=== PATIENT | female | born 1975 ===

== ENCOUNTER 2020-08-18 08:01 | Outpatient (REF) | payer OTHER, SELFPAY ==
[2020-08-25 10:37] LABS: HPV mRNA E6/E7 rflx Not Detected (Not Detected)
== END 2020-08-18 08:02 | disposition home or self-care (01) ==
LOC: HO.LAB 08:01
PROVIDERS: PCP Internal Medicine; Referring Provider Internal Medicine; Visit Provider Obstetrics & Gynecology
DX: Z01.419 Encounter for gynecological examination (general) (routine) without abnormal findings (principal)
CPT/HCPCS: 87624; 87625; 88142

== ENCOUNTER 2021-06-06 08:52 | Outpatient (REF) | payer OTHER, SELFPAY ==
[2021-06-06 10:48] LABS: Hematocrit 40.3 % (37-47); Hemoglobin 13.1 g/dl (12.0-16.0); Mean Corpuscular HGB Conc 32.5 g/dl (31.0-35.0); Mean Corpuscular Hemoglobin 29.1 pg (27.0-33.0); Mean Corpuscular Volume 89.6 fL (80-98); Mean Platelet Volume 8.9 fL (9.4-12.3); Platelet Count 345 X10*3/uL (160-400); Red Cell Distribution Width 13.2 % (11.0-16.0); White Blood Count 6.9 X10*3/uL (4.8-10.8)
[2021-06-06 11:14] LABS: Thyroid Stimulating Hormone 2.36 uIU/mL (0.32-4.0)
[2021-06-06 11:16] LABS: Alanine Aminotransferase 38 U/L (0-31); Albumin Level 4.7 g/dL (3.5-5.0); Alkaline Phosphatase 119 U/L (39-117); Anion Gap 17 (12-20); Aspartate Amino Transferase 22 U/L (5-31); Blood Urea Nitrogen 14 mg/dL (9-16); C Reactive Protein 1.25 mg/dL (< or = 0.50); Carbon Dioxide 28 mmol/L (22-29); Chloride 101 mmol/L (96-108); Cholesterol 298 mg/dL; Estimated Glomerular Filt Rate > 60; Glucose Random 99 mg/dL (60-115); HDL Cholesterol 46 mg/dL; LDL Cholesterol Calculated 227 mg/dl; Potassium 5.7 mmol/L (3.3-5.1); Sodium 140 mmol/L (135-145); Total Protein 7.8 g/dL (6.5-8.0); Triglycerides 128 mg/dL
[2021-06-06 11:29] LABS: Bilirubin Direct < 0.2 mg/dL (0.0-0.5); Bilirubin Total 0.3 mg/dL (0.0-1.0); Calcium 10.6 mg/dL (8.4-10.2)
[2021-06-12 16:01] LABS: Vitamin D 25-OH, D2 <4 ng/mL; Vitamin D 25-OH, D3 30 ng/mL; Vitamin D 25-OH, Total 30 ng/mL (30-100)
== END 2021-06-06 08:53 | disposition home or self-care (01) ==
LOC: HO.LAB 08:52
PROVIDERS: PCP Internal Medicine; Visit Provider Internal Medicine
DX: Z00.00 Encounter for general adult medical examination without abnormal findings (principal); C50.919 Malignant neoplasm of unspecified site of unspecified female breast; F19.11 Other psychoactive substance abuse, in remission; L21.0 Seborrhea capitis; R05 Cough
CPT/HCPCS: 36415; 80048; 80061; 80076; 82306; 84443; 85027; 86140

== ENCOUNTER 2021-12-07 14:14 | Outpatient (REF) | payer OTHER, SELFPAY ==
[2021-12-07 14:56] LABS: White Blood Count 6.5 X10*3/uL (4.8-10.8)
[2021-12-07 14:57] LABS: Hematocrit 40.2 % (37.0-47.0); Hemoglobin 13.2 g/dl (12.0-16.0); Mean Corpuscular HGB Conc 32.8 g/dl (31.0-35.0); Mean Corpuscular Hemoglobin 28.9 pg (27.0-33.0); Mean Corpuscular Volume 88.2 fL (80.0-98.0); Mean Platelet Volume 8.9 fL (9.4-12.3); Platelet Count 244 X10*3/uL (160-400); Red Blood Count 4.56 X10*6/uL (4.20-5.50); Red Cell Distribution Width 13.2 % (11.0-16.0)
[2021-12-07 15:23] LABS: Alanine Aminotransferase 62 U/L (0-31); Albumin Level 4.5 g/dL (3.5-5.0); Alkaline Phosphatase 86 U/L (39-117); Anion Gap 13 (12-20); Aspartate Amino Transferase 34 U/L (5-31); Bilirubin Direct < 0.2 mg/dL (0.0-0.5); Bilirubin Total 0.2 mg/dL (0.0-1.0); Blood Urea Nitrogen 9 mg/dL (9-16); C Reactive Protein 0.31 mg/dL (< or = 0.50); Carbon Dioxide 27 mmol/L (22-29); Chloride 102 mmol/L (96-108); Cholesterol 258 mg/dL; Estimated Glomerular Filt Rate > 60; Glucose Random 97 mg/dL (60-115); HDL Cholesterol 43 mg/dL; LDL Cholesterol Calculated 187 mg/dl; Potassium 4.2 mmol/L (3.3-5.1); Sodium 138 mmol/L (135-145); Total Protein 7.6 g/dL (6.5-8.0); Triglycerides 144 mg/dL
[2021-12-07 15:47] LABS: Thyroid Stimulating Hormone 2.84 uIU/mL (0.32-4.0)
[2021-12-09 12:52] LABS: TS Negative Control Passed; TS Panel A 0; TS Panel B 0; TS Positive Control Passed; TSpotTB Negative (Negative)
== END 2021-12-07 14:15 | disposition home or self-care (01) ==
LOC: HO.LAB 14:14
PROVIDERS: PCP Internal Medicine; Visit Provider Internal Medicine
DX: Z11.1 Encounter for screening for respiratory tuberculosis (principal); E78.01 Familial hypercholesterolemia; R05.9 Cough, unspecified
CPT/HCPCS: 36415; 80048; 80061; 80076; 84443; 85027; 86140; 86481

== ENCOUNTER 2022-02-15 11:02 | Outpatient (REF) | payer OTHER, SELFPAY | END 2022-02-15 11:03 | disposition home or self-care (01) | LOC: HO.LAB 11:02 | PROVIDERS: Visit Provider Obstetrics & Gynecology | DX: Z01.411 Encounter for gynecological examination (general) (routine) with abnormal findings (principal); N88.9 Noninflammatory disorder of cervix uteri, unspecified | CPT/HCPCS: 57500; 88305 ==

== ENCOUNTER → 2022-03-02 15:12 | Outpatient (BNVA) | payer OTHER, SELFPAY | PROVIDERS: PCP Internal Medicine; Visit Provider Obstetrics & Gynecology | DX: N88.9 Noninflammatory disorder of cervix uteri, unspecified (principal) | CPT/HCPCS: 99212 ==

== ENCOUNTER 2022-11-14 12:47 | Outpatient (REF) | payer OTHER, SELFPAY ==
--- NOTE | ~2022-11-14 | US_ITS ---
EXAMINATION: US PELVIS CLINICAL INFORMATION: Irregular menstruation. LMP approximately 11/10/2022. COMPARISON: No similar priors. TECHNIQUE: Ultrasound of the pelvis is performed using both transabdominal and transvaginal transducers along with Doppler. Transvaginal imaging is performed due to inadequate visualization transabdominally. FINDINGS: The uterus is anteverted and anteflexed measuring 6.5 x 3.1 x 4.3 cm. There is a 0.9 x 0.9 x 0.8 cm partially exophytic lesion in the posterior uterine fundus that statistically favors to represent a fibroid. The endometrium measures 0.4 cm in thickness without discrete focal abnormality. The right ovary is atrophic but with normal morphology and preserved flow on color Doppler at the moment of this examination measuring 1.3 x 1.2 x 1.2 cm, 1 mL. The left ovary is asymmetrically enlarged measuring 2.5 x 2.4 x 2.2 cm, 6.7 mL. There is suggestion of a rounded lesion in the left ovary measuring approximately 0.9 x 0.8 x 0.8 cm with internal echoes/debris and no discrete associated vascularity. There is preserved flow to this ovary on color Doppler at the moment of this examination. A few hyperechoic foci are noted in the parenchyma of the left ovary. No free fluid. US/US pelvic and transvaginal IMPRESSION: 1. Asymmetric enlargement of the left ovary with suggestion of an approximately 0.9 cm rounded lesion with internal echoes/debris and no discrete associated vascularity. This could represent a hemorrhagic cyst or corpus luteal cyst, however an ovarian neoplasm cannot be entirely excluded. Recommend a follow-up examination in 6-12 weeks to reassess. Alternatively, further evaluation with an MR pelvis with and without IV contrast could be obtained. 2. A few hyperechoic foci are noted in the parenchyma of the left ovary which could represent calcifications, uncertain significance. Attention on follow-up recommended. 3. A 0.9 cm lesion in the posterior uterine fundus statistically favors to represent a fibroid. 4. The right ovary is atrophic.
== END 2022-11-14 12:48 | disposition home or self-care (01) ==
LOC: HO.HMGCX 12:47
PROVIDERS: PCP Internal Medicine; Visit Provider Internal Medicine
DX: N92.6 Irregular menstruation, unspecified (principal)
CPT/HCPCS: 76830; 76856

== ENCOUNTER → 2022-12-19 11:26 | Outpatient (BNVA) | payer OTHER, SELFPAY | PROVIDERS: PCP Internal Medicine; Visit Provider Obstetrics & Gynecology | DX: Z13.89 Encounter for screening for other disorder (principal) ==

== ENCOUNTER 2023-01-12 13:24 | Outpatient (REF) | payer OTHER, SELFPAY ==
--- NOTE | ~2023-01-12 | MR_ITS ---
EXAMINATION: MR PELVIS WITHOUT AND WITH CONTRAST CLINICAL INFORMATION: Follow-up ovarian cyst. COMPARISON: Previous pelvic ultrasound October 2022. TECHNIQUE: Sagittal, axial and coronal sequences through the pelvis with and without IV contrast. The patient received 8.5 mL Gadavist intravenous contrast. FINDINGS: The uterus is anteverted and measures 7.64 x 4.5 cm in sagittal AP and transverse dimension. Endometrial thickness is normal measuring 5 mm. The junctional zone does not appear thickened. There is a 1 cm low signal lesion seen in the posterior right uterine body probably representing a fibroid. There is a 1 cm low signal lesion in the left fundus of the uterus probably representing a fibroid. No other focal uterine lesion. There are nabothian cysts in the cervix. There is a new 3.4 x 2.9 x 3.5 cm lesion in the right ovary. This is heterogeneous in signal. Predominantly high signal on T1-weighted and T2 sequences. This has septation, dependent low signal component and fluid-fluid level. Differential would include endometrioma and hemorrhagic cyst. There is an 8 mm lesion in the left ovary. There is high signal on T1 and T2-weighted sequences and does not demonstrate appreciable enhancement. This may represent a hemorrhagic cyst or endometrioma as well. No ascites or adenopathy. The bladder is not optimally distended. Visualized bowel is normal. No hernia. Normal vascular structures. Bright 1 cm lesion in the L4 vertebral body probably representing a hemangioma. Bony structures are otherwise unremarkable. MR/MR pelvis wo/w con IMPRESSION: New 3 x 3.5 cm complex right ovarian lesion and probably stable 8 mm left ovarian lesion. These probably represent hemorrhagic cysts or endometriomas. Small uterine fibroids.
[2023-01-12 13:59] LABS: Hematocrit 40.9 % (37.0-47.0); Hemoglobin 13.6 g/dl (12.0-16.0); Mean Corpuscular HGB Conc 33.3 g/dl (31.0-35.0); Mean Corpuscular Hemoglobin 28.8 pg (27.0-33.0); Mean Corpuscular Volume 86.7 fL (80.0-98.0); Mean Platelet Volume 8.8 fL (9.4-12.3); Platelet Count 276 X10*3/uL (160-400); Red Blood Count 4.72 X10*6/uL (4.20-5.50); Red Cell Distribution Width 13.5 % (11.0-16.0); White Blood Count 7.6 X10*3/uL (4.8-10.8)
[2023-01-12 14:36] LABS: Alanine Aminotransferase 41 U/L (0-31); Albumin Level 4.4 g/dL (3.5-5.0); Alkaline Phosphatase 60 U/L (39-117); Anion Gap 12 (12-20); Aspartate Amino Transferase 34 U/L (5-31); Bilirubin Direct 0.1 mg/dL (0.0-0.5); Bilirubin Total 0.5 mg/dL (0.0-1.0); Blood Urea Nitrogen 8 mg/dL (9-16); Calcium 9.5 mg/dL (8.4-10.2); Carbon Dioxide 30 mmol/L (22-29); Chloride 103 mmol/L (96-108); Cholesterol 230 mg/dL; Estimated Glomerular Filt Rate > 60; Glucose Random 87 mg/dL (60-115); HDL Cholesterol 40 mg/dL; LDL Cholesterol Calculated 164 mg/dl; Potassium 4.4 mmol/L (3.3-5.1); Sodium 141 mmol/L (135-145); Total Protein 7.1 g/dL (6.5-8.0); Triglycerides 130 mg/dL
[2023-01-12 14:51] LABS: Thyroid Stimulating Hormone 4.56 uIU/mL (0.32-4.0)
[2023-01-12 14:56] LABS: Appearance Urine Cloudy; Color Urine Dark Yellow; Glucose Urine UA Negative (Negative); Leukocyte Esterase Urine Small (1+) (Negative); Nitrite Urine Negative (Negative); PH 5.5 (5.0-9.0); Specific Gravity - Urine >= 1.030 (1.005-1.025); UMIC TRIGGER UA YES; Urine Blood Negative (Negative); Urine Ketones Trace mg/dL (Negative); Urine Protein 30 (1+) mg/dL (Neg-Trace)
[2023-01-12 15:12] LABS: Bacteria Urine 1+ (None Seen); Hyaline Casts Urine 0-2 /LPF (0-2); RBC Urine 0-2 /HPF (0-2)
[2023-01-15 16:28] LABS: CA-125 12 U/mL (<35)
== END 2023-01-12 13:25 | disposition home or self-care (01) ==
LOC: HO.MRI 13:24
PROVIDERS: Absent Provider Internal Medicine; PCP Internal Medicine; Visit Provider Obstetrics & Gynecology
DX: E78.5 Hyperlipidemia, unspecified (principal); N83.201 Unspecified ovarian cyst, right side; N83.9 Noninflammatory disorder of ovary, fallopian tube and broad ligament, unspecified
CPT/HCPCS: 36415; 72197; 80048; 80061; 80076; 81001; 84443; 85027; 86304; A9585

== ENCOUNTER → 2023-02-01 10:20 | Outpatient (BNVA) | payer OTHER, SELFPAY | PROVIDERS: PCP Internal Medicine; Visit Provider Obstetrics & Gynecology ==

== ENCOUNTER 2023-04-26 11:00 | Outpatient (REF) | payer OTHER, SELFPAY ==
--- NOTE | ~2023-04-26 | US_ITS ---
EXAMINATION: US PELVIS CLINICAL INFORMATION: Ovarian cyst. COMPARISON: Pelvic ultrasound dated 11/14/2022. MRI dated 01/12/2023. TECHNIQUE: Ultrasound of the pelvis is performed using both transabdominal and transvaginal transducers along with Doppler. Transvaginal imaging is performed due to inadequate visualization transabdominally. FINDINGS: Uterus: The uterus is anteverted and measures 8.7 x 3.2 x 4.2 cm. The double wall endometrial thickness is 7 mm. 1.1 cm or less fundal uterine leiomyomata. The uterus is smooth in contour and otherwise demonstrates unremarkable myometrial echogenicity. Adnexa: Both ovaries are visualized. There is normal color flow to the adnexa. There is no evidence of ovarian torsion. No pelvic ascites or fluid collection is seen. Right ovary measures 2.5 x 1.1 x 1.7 cm. The 3 x 3.5 cm complex right ovarian lesion identified on MRI from 01/12/2023 is not clearly demonstrated on the current study. Left ovary measures 3.5 x 2.9 x 2.8 cm. 2.6 x 2.5 x 2.2 cm left ovarian structure which is suboptimally visualized. It may contain a fluid-fluid level. A 0.9 cm rounded lesion with internal echoes/debris was identified within the left ovary on 11/14/2022. US/US pelvic and transvaginal IMPRESSION: 2.6 x 2.5 x 2.2 cm left ovarian structure which is suboptimally visualized. It may contain a fluid-fluid level. A 0.9 cm rounded lesion with internal echoes/debris was identified within the left ovary on 11/14/2022. Follow-up pelvic ultrasound in approximately 6 weeks is recommended for further evaluation. The 3 x 3.5 cm complex right ovarian lesion identified on MRI from 01/12/2023 is not clearly demonstrated on the current study.
== END 2023-04-26 11:01 | disposition home or self-care (01) ==
LOC: HO.US 11:00
PROVIDERS: PCP Internal Medicine; Visit Provider Obstetrics & Gynecology
DX: N83.299 Other ovarian cyst, unspecified side (principal)
CPT/HCPCS: 76830; 76856

== ENCOUNTER 2023-06-21 13:39 | Outpatient (REF) | payer OTHER, SELFPAY ==
[2023-06-26 20:04] LABS: HPV mRNA E6/E7 rflx Not Detected (Not Detected)
== END 2023-06-21 13:40 | disposition home or self-care (01) ==
LOC: HO.LNP 13:39
PROVIDERS: PCP Internal Medicine; Visit Provider Obstetrics & Gynecology
DX: Z01.419 Encounter for gynecological examination (general) (routine) without abnormal findings (principal); Z11.51 Encounter for screening for human papillomavirus (HPV)
CPT/HCPCS: 87624; 88142

== ENCOUNTER 2023-06-21 13:39 | Outpatient (AMB) | payer OTHER, SELFPAY ==
[2023-06-21 13:45] VITALS: BP 130/72; BMI 36.3
--- NOTE | 2023-06-21 13:45 | A.OFFVIS_ITS ---
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 No complaints. Last Pap/HPV was negative in 08/13 Last Mammogram was in 12/14 at [facility] according to patient result was negative, records are not available No previous screen Colonoscopy Last pelvic ultrasound on 04/30/2023, as a follow-up from previous MRI showing right complex ovarian cyst showed the following: IMPRESSION: 2.6 x 2.5 x 2.2 cm left ovarian structur e which is suboptimally visualized. It may contain a fluid-fluid level. A 0.9 cm rounded lesion with internal echoes/debris was identified within the left ovary on 11/14/2022. Follow-up pelvic ultrasound in approximately 6 weeks is recommended for further evaluation. The 3 x 3.5 cm complex right ovarian lesion identified on MRI from 01/12/2023 is not clearly demonstrated o n the current study. PFSH Medical History Seborrhea capitis History of drug abuse Breast cancer Surgical History Hx of breast reconstruction History of lumpectomy of left breast H/O LEEP Family History Mother Substance use disorder Father No problems noted. Sister Breast cancer Social History Housing: House Alcohol intake: never Patient Tobacco Use Status: Former Tobacco user Tobacco use type: Cigarette e-Cigarette/Vaping Use: Never Used Second Hand Smoke Exposure: No service: No Current occupational status: employed Gender identity: Female Cognitive needs: No Hearing needs: No Vision needs: No Female Reproductive History Menstrual Age of Menarche: 14 control method: none Total pregnancies: 1 Full term: 1 Number of Living Children: 1 Date of last pap smear: 08/23/20 (negative) Review of Systems Const All systems reviewed & are unremarkable except as noted in HPI and below Card Reports as per HPI Resp Reports as per HPI GI Reports as per HPI and Reports no additional complaints Reports as per HPI Physical Exam Vital Signs: Last Vital Signs BP 130/72 06/21/23 13:45 BMI result Body Mass Index 36.3 Const General: cooperative, healthy appearing and comfortable Chest Chest palpation & inspection: normal inspection of the chest and normal palpation of entire chest wall Breast/axilla inspection: normal inspection of the breasts and normal inspection of the axillae Breast/axilla palpation: normal palpation of the breasts, normal palpation of th e axillae and no axillary lymphadenopathy Resp Effort & Inspection: normal respiratory effort Auscultation: clear to auscultation bilaterally Percussion: percussion normal Cardio Palpation: normal PMI Rate: regular rate Rhythm: regular rhythm Heart sounds: no murmurs and no rubs Peripheral pulses: Peripheral pulses 2+ throughout GI Inspection: Yes normal to inspection Palpation (GI): Soft to palpation, nontender, no guarding, not rigid and No hepatosplenomegaly present Percussion: Yes normal to percussion Auscultation: normal bowel sounds Rectal Exam - Female: deferred General: Yes bladder normal to palpation External Female Exam: No lesion Speculum Exam - Vagina: normal appearance of the vagina, normal palpation, normal vaginal discharge and not erythematous Speculum Exam - Cervix: normal appearance of the cervix and normal palpation Bimanual exam- vagina & uterus: normal bimanual exam, normal palpation, uterine size normal, bladder normal to palpation, consistency normal and normal palpation Bimanual Exam- Adnexa, other: normal adnexae, no masses and no tenderness Assessment & Plan Assessment & Plan (1) Well woman exam: Comment: History of a LEEP in 2003 Code(s): Z01.419 - Encounter for gynecological examination (general) (routine) without abnormal findings Plan: Cotesting done since the patient had a LEEP in 2003 Instructions given the patient to schedule her next screen Mammogram in 12/15 Counseled the patient about the recommended dietary allowance of 1000 mg of Calcium & 600 IU of vitamin D. Will refer to GI for screening colonoscopy The patient was instructed to perform monthly self-breast exams and to schedule an annual exam in a year; All questions answered and the patient verbalized understanding. Instructed the patient to schedule annual exam in a year (2) Complex ovarian cyst: Comment: Right Code(s): N83.299 - Other ovarian cyst, unspecified side Plan: Discussed with the patient ultrasound findings showing the previously identified complex cyst has resolved. The patient was instructed to call if symptoms recur. All questions were answered the patient verbalized understanding. (3) Left pelvic adnexal fluid collection: Code(s): R19.8 - Other specified symptoms and signs involving the digestive system and abdomen Plan: Discussed with the patient the results of the ultrasound showing left adnexal structures was fluid filled, repeat pelvic ultrasound within 2 weeks. Instructions given the patient to schedule a follow-up appointment afterwards. All questions answered, the patient verbalized understanding. Orders: Orders Pap Smear Today Z01.419 - Encounter for gynecological examination (general) (r outine) without abnormal findings US pelvic and transvaginal Today R19.8 - Other specified symptoms and signs involving the digestive system and abdomen Referrals Gastroenterology Referral Z12.11 - Encounter for screening for malignant neoplasm of colon Coding Level of Care Code Est Pt Prev Care 40-64y(64489) Diagnoses Well woman exam Z01.419 Complex ovarian cyst N83.299 Left pelvic adnexal fluid collection R19.8
== END 2023-06-21 14:22 | disposition home or self-care (01) ==
PROVIDERS: PCP Internal Medicine; Visit Provider Obstetrics & Gynecology
DX: Z01.419 Encounter for gynecological examination (general) (routine) without abnormal findings (principal); N83.299 Other ovarian cyst, unspecified side; R19.8 Other specified symptoms and signs involving the digestive system and abdomen
CPT/HCPCS: 99396

== ENCOUNTER 2023-07-12 11:33 | Outpatient (REF) | payer OTHER, SELFPAY ==
--- NOTE | ~2023-07-12 | US_ITS ---
EXAMINATION: US PELVIS COMPLETE CLINICAL INFORMATION: Additional Notes/Special Instructions Left pelvic adnexal fluid collection COMPARISON: Pelvic ultrasound 04/26/2023 TECHNIQUE: Transabdominal and transvaginal imaging was performed. FINDINGS: The uterus is of normal size and echogenicity measuring 6.8 x 3.5 x 4.2 cm. A regular homogeneous endometrium is identified measuring 0.4 cm. Nabothian cysts in the cervix. A 0.8 cm right intramural myoma previously 0.6 cm and a 1.0 cm posterior body subserosal myoma, previously 1.1 cm. Both ovaries are of normal size and echogenicity. The right measures 2.1 x 1.8 x 1.3 cm for a volume of 2.6 mL. The left measures 2.2 x 1.3 x 1.3 cm for a volume of 2.0 mL. Resolution of the previously seen left ovarian hemorrhagic cyst. There is no pelvic free fluid. US/US pelvic and transvaginal IMPRESSION: 1. Resolution of the previously seen left ovarian hemorrhagic cyst. 2. A 0.8 cm right intramural myoma and a 1.0 cm posterior body subserosal myoma.
== END 2023-07-12 11:34 | disposition home or self-care (01) ==
LOC: HO.US 11:33
PROVIDERS: PCP Internal Medicine; Visit Provider Obstetrics & Gynecology
DX: R19.8 Other specified symptoms and signs involving the digestive system and abdomen (principal)
CPT/HCPCS: 76830; 76856

== ENCOUNTER 2023-10-04 08:14 | Outpatient (AMB) | payer OTHER, SELFPAY ==
[2023-10-04 08:23] VITALS: BP 128/78; PULSE 97; O2SAT 98; BMI 35.1
--- NOTE | 2023-10-04 08:23 | MHC.PC.OV ---
Vital Signs 10/04/23 08:23 Height 5 ft 1 in Weight 186 lb BMI 35.1 BP 128/78 Blood Pressure Location Lt brachial Position Sitting Pulse 97 Pulse Source Pulse Oximeter Pulse Oximetry (%) 98 Oxygen Delivery Method Room Air Intake Visit Reasons: 6mth f/u Allergies No Known Allergies [No Known Allergies*] Allergy (Verified 10/04/23 08:23) Tobacco use date assessed: 10/04/23 Dental Screening Dental Screen Date: 10/04/23 Did you have a dental visit in the last 12 months?: Yes Did you have a dental problem in the last 6 months where you did not have access to dental care?: No Was dental information given to patient?: Patient has dentist HPI 6mth f/u HPI Details 47-year-old female presents to the office to discuss her chronic medical conditions. The insurance company declined her request for the weight loss medications. Patient is quite frustrated. Reports she has been exercising and following a healthy diet. Compliant with medications. Patient was diagnosed with breast cancer at age 43. She had 2 lumps in the left breast and had 2 lumpectomies followed by chemo and radiation. She is being followed by the oncologist at [facility]. Able to function and do all activities of daily living. [facility] Medical History Seborrhea capitis History of drug abuse Breast cancer Surgical History Hx of breast reconstruction History of lumpectomy of left breast H/O LEEP Family History Mother Substance use disorder Father No problems noted. Sister Breast cancer Social History Housing: House Alcohol intake: never Patient Tobacco Use Status: Former Tobacco user Tobacco use type: Cigarette e-Cigarette/Vaping Use: Never Used Second Hand Smoke Exposure: No service: No Current occupational status: employed Gender identity: Female Cognitive needs: No Hearing needs: No Vision needs: Yes Female Reproductive History Menstrual Age of Menarche: 14 Questionnaire PHQ-9 Over the last 2 weeks, how often have you been bothered by any of the following problems? 1. Little interest or pleasure in doing things: not at all 2. Feeling down, depressed, or hopeless: several days 3. Trouble falling or staying asleep, or sleeping too much: not at all 4. Feeling tired or having little energy: not at all 5. Poor appetite or overeating: not at all 6. Feeling bad about yourself - or that you are a failure or have let yourself or your family down: not at all 7. Trouble concentrating on things, such as reading the newspaper or watching television: not at all 8. Moving or speaking so slowly that other people could have noticed. Or the opposite - being so fidgety or restless that you have been moving around a lot more than usual: not at all 9. Thoughts that you would be better off or of hurting yourself in some way: not at all Total score: 1 Source: Developed by Drs. Ghanshyam Fallon, Tonja Lind, Gregg Joseph and colleagues, with an educational allison from [employer]. Thrive Questionnaire Date Thrive assessed: 10/04/23 I am a: Patient What is your living situation today?: I have a steady place to live Within the past 12 months, did the food you bought not last and you didn't have the money to get more?: Never true Within the past 12 months, did you worry whether your food would run out before you got money to buy more?: Never true Do you have trouble paying for medicines?: No Do you have trouble getting transportation to medical appointments?: No Do you have trouble paying your heating and electricity bill?: No Do you have trouble taking care of your child, family member or friend?: No Do you have trouble with day-to-day activities such as bathing, preparing meals, shopping, managing finances, etc.?: No Are you currently unemployed and looking for a job?: No Are you interested in more education?: No Please select the resources that you would like help with: None Currently or been in a relationship where the following occur: no concerns reported AUDIT C Alcohol Use Questionnaire (AUDIT-C) 1. How often do you have a drink containing alcohol?: Never Total Score: 0 ALFONZO-7 AMB Questionnaire ALFONZO-7 Date ALFONZO - 7 assessed: 10/04/23 Feeling nervous, anxious, or on edge: 1 = Several days Not being able to stop or control worryin = Not at all Worrying too much about different things: 0 = Not at all Trouble relaxin = Not at all Being so restless that it is hard to sit still: 0 = Not at all Becoming easily annoyed or irritable: 0 = Not at all Feeling afraid as if something awful might happen: 0 = Not at all Total ALFONZO-7 score (0-4 normal; 5-9 mild; 10-14 moderate; 15-21 severe): 1 Source: Developed by Drs. Ghanshyam Fallon, Tonja Lind, Gregg Joseph and colleagues, with an educational allison from [employer]. Physical exam (Primary Care) Vital Signs: Last Vital Signs Pulse 97 10/04/23 08:23 BP 128/78 10/04/23 08:23 Pulse Ox 98 10/04/23 08:23 Oxygen Delivery Method Room Air 10/04/23 08:23 Care Plan Goal for BP management: Blood pressure is stable. Continue current medications. BMI result Body Mass Index 35.1 Tobacco/Smoking Status: Tobacco use Status Tobacco use date assessed 10/04/23 10/04/23 08:27 Patient Tobacco Use Status Former Tobacco user 10/04/23 08:27 Tobacco use type Cigarette 10/04/23 08:27 e-Cigarette/Vaping Use Never Used 10/04/23 08:27 PHQ-9: PHQ-9 Score PHQ-9: Total score 1 10/04/23 08:27 Thrive Assessment: Date of Thrive Assessment Date Thrive assessed 10/04/23 10/04/23 08:27 Currently or been in a relationship where the following occur: no concerns reported Const General: cooperative and healthy appearing Nutritional Appearance: well nourished Orientation/consciousness: patient oriented x3 Limitations: no limitations HENMT Head: Yes normal to inspection Eyes General: appearance normal, both eyes and all related structures Neck Neck: Yes normal visual inspection Chest Chest palpation & inspection: normal palpation of entire chest wall Resp Effort & Inspection: normal respiratory effort Neuro General: patient oriented x3 Assessment and Plan Assessment & Plan (1) Class 2 severe obesity with body mass index (BMI) of 35 to 39.9 with serious comorbidity: Code(s): E66.01 - Morbid (severe) obesity due to excess calories Plan: An appointment with the weight loss clinic or a collection systems administrator has been suggested. Clinical tree care foreman will try to help the patient get the appointment. (2) Familial hypercholesterolemia: Code(s): E78.01 - Familial hypercholesterolemia Plan: Blood work has been ordered. Will call with results. (3) History of drug abuse: Code(s): F19.11 - Other psychoactive substance abuse, in remission Plan: This condition is stable. Patient has continued to abstain. (4) Breast cancer: Code(s): C50.919 - Malignant neoplasm of unspecified site of unspecified female breast Plan: Condition is stable. Copy of her last mammogram has been requested. Coding Level of Care Code Est Pt Level 4 (75212) Diagnoses Class 2 severe obesity with body mass index (BMI) of 35 to 39.9 with serious comorbidity E66.01 Familial hypercholesterolemia E78.01 History of drug abuse F19.11 Breast cancer C50.919
== END 2023-10-04 08:42 | disposition home or self-care (01) ==
PROVIDERS: PCP Internal Medicine; Visit Provider Internal Medicine
DX: C50.919 Malignant neoplasm of unspecified site of unspecified female breast (principal); E66.01 Morbid (severe) obesity due to excess calories; F19.11 Other psychoactive substance abuse, in remission; Z68.35 Body mass index [BMI] 35.0-35.9, adult; E78.01 Familial hypercholesterolemia
CPT/HCPCS: 99214

== ENCOUNTER 2023-10-05 09:42 | Outpatient (AMB) | payer OTHER, SELFPAY ==
--- NOTE | 2023-10-05 09:43 | A.OFFVIS_ITS ---
Intake Vital Signs 10/05/23 09:49 Height 5 ft 1 in Weight 186 lb BMI 35.1 BP 120/64 Blood Pressure Location Lt brachial Position Sitting Pulse 88 Intake Visit Reasons: Colonoscopy Screening Intake Note: Patient new consult for Pre Colonoscopy screening. Patient cc: constipation, denies any other GI issues. Solutions Architect Required: No Accompanied by: Self / Same As Patient Allergies No Known Allergies [No Known Allergies*] Allergy (Verified 10/05/23 09:44) HPI Colonoscopy Screening HPI Details 47-year-old female with past medical his tory of uterine myoma, abnormal menstruation, hyperlipidemia, headaches, breast cancer is here today for initial consultation. Patient was sent to us by her PCP. This will be her 1st colonoscopy screening. Patient denies any family history of colorectal cancer. Patient denies any issues with anesthesia in the past. Denies any history of sleep apnea. Not on any anticoagulation medication. Patient reports that she has been constipated for very long time. Sometimes bowel movements only once a week. Patient is also on Suboxone. That could be also contributing to her constipation. All the patient does report that she has long history of constipation. Patient denies any melena, hematochezia, unintentional weight loss or ribbon like stools. Denies any dyspepsia, dysphagia or odynophagia. [facility] Medical History Seborrhea capitis History of drug abuse Breast cancer Surgical History Hx of breast reconstruction History of lumpectomy of left breast H/O LEEP Family History Mother Substance use disorder Father No problems noted. Sister Breast cancer Social History Housing: House Alcohol intake: never Patient Tobacco Use Status: Former Tobacco user Tobacco use type: Cigarette e-Cigarette/Vaping Use: Never Used Second Hand Smoke Exposure: No service: No Current occupational status: employed Gender identity: Female Cognitive needs: No Hearing needs: No Vision needs: Yes Female Reproductive History Menstrual Age of Menarche: 14 Review of Systems Const Denies weight gain and Denies weight loss ENT Reports no additional complaints, Denies dysphagia and Denies odynophagia Card Reports no additional complaints Resp Reports no additional complaints GI Denies abdominal pain, Denies belching, Denies melena, Denies bloating, Reports constipation, Denies dysphagia, Denies excessive flatus, Denies dyspepsia, Denies heartburn, Denies diarrhea, Denies loose stools, Denies nausea, Denies odynophagia and Denies vomiting Reports no additional complaints Musc Reports no additional complaints Neuro Reports no additional complaints Psych Reports no additional complaints Endo Reports no additional complaints Physical Exam Vital Signs: Last Vital Signs Pulse 88 10/05/23 09:49 BP 120/64 10/05/23 09:49 BMI result Body Mass Index 35.1 Const General: healthy appearing, no acute distress and well developed Nutritional Appearance: well nourished Orientation/consciousness: patient oriented x3 Resp Effort & Inspection: normal respiratory effort, able to speak in complete sentences, no tracheal deviation and symmetric chest movement Auscultation: clear to auscultation bilaterally Cardio Rate: regular rate GI Inspection: Yes normal to inspection and No distended Palpation (GI): Soft to palpation, not firm, nontender and No hepatosplenomegaly present Auscultation: normal bowel sounds General: Yes no CVA tenderness Back/Spine/Pelvis Back: no CVA tenderness Skin General skin exam: elasticity normal, turgor normal and dry skin Neuro General: patient oriented x3 Psych Appearance: grossly normal Mental Status: mental status grossly normal Assessment & Plan Assessment & Plan (1) Screen for colon cancer: Code(s): Z12.11 - Encounter for screening for malignant neoplasm of colon (2) Constipation: Code(s): K59.00 - Constipation, unspecified Qualifiers: Constipation type: chronic idiopathic constipation Qualified Code(s): K59.04 - Chronic idiopathic constipation Plan Patient can start taking bisacodyl tablets daily. She was encouraged to increase fluid intake and activity to promote better bowel motility. What to expect before during and after the procedure discussed with patient. The impor tance of clear liquid diet and good bowel prep discussed with patient. Patient will call us if Dulcolax tablets are not going to be working for something stronger to her palm move her bowels. I will see her after the procedure, sooner on as needed basis. Patient is agreeable to this plan and verbalizes understanding of instructions. She was given the opportunity to ask questions and all questions answered. Thank you for allowing me to participate in her care Medications: New bisacodyl (Dulcolax (bisacodyl)) 10 mg (2 x 5 mg) PO BEDTIME 180 tabs 4RF polyethylene glycol 3350 (Miralax) As directed by gastroenterology department at [facility] [place] 238 grams PO ONCE 238 grams 0RF Z12.11 - Encounter for screening for malignant neoplasm of colon Coding Level of Care Code New Pt Level 3 (66814) Diagnoses Screen for colon cancer Z12.11 Chronic idiopathic constipation K59.04 Constipation type: chronic idiopathic constipation Time Spent (min) 40 Comment 30 minutes spent with patient and additional 10 minutes spent reviewing her records
[2023-10-05 09:49] VITALS: BP 120/64; PULSE 88; BMI 35.1
== END 2023-10-05 10:56 | disposition home or self-care (01) ==
PROVIDERS: PCP Internal Medicine; Visit Provider Nurse Practitioner Family
DX: Z12.11 Encounter for screening for malignant neoplasm of colon (principal); K59.04 Chronic idiopathic constipation; Z01.818 Encounter for other preprocedural examination
CPT/HCPCS: 99203

== ENCOUNTER → 2023-10-05 09:42 | Outpatient (BNVA) | payer OTHER, SELFPAY | PROVIDERS: PCP Internal Medicine; Visit Provider Nurse Practitioner Family ==

== ENCOUNTER 2023-10-25 08:29 | Outpatient (AMB) | payer OTHER, SELFPAY ==
--- NOTE | 2023-10-25 08:35 | A.OFFPC_ITS ---
Vital Signs 10/25/23 08:36 Height 5 ft 1 in Weight 191 lb 2 oz BMI 36.1 BP 142/80 H Blood Pressure Location Rt brachial Position Sitting Pulse 73 Pulse Source Pulse Oximeter Pulse Oximetry (%) 98 Oxygen Delivery Method Room Air Intake Visit Reasons: PE Intake Note: Patient is here today for a physical. Food And Nutrition Professor Required: No Family Day Care Worker: Not Required per policy Accompanied by: Self / Same As Patient Allergies No Known Allergies [No Known Allergies*] Allergy (Verified 10/28/23 18:06) Medication List - Last Reconciled 10/28/23 by Isaiah Polk MD acetaminophen 650 mg PO Q6H bisacodyl (Dulcolax (bisacodyl)) 10 mg (2 x 5 mg) PO BEDTIME buprenorphine-naloxone 2-0.5 mg 2 mg sublingual .twice a day cholecalciferol (vitamin D3) 50 mcg PO DAILY ibuprofen 800 mg PO Q8H PRN polyethylene glycol 3350 (Miralax) 238 grams PO ONCE Tobacco use date assessed: 10/25/23 HPI PE HPI Details 47-year-old [facility]. Patient would like to get a result of the pelvic ultrasound that was done in July. She is also complaining of right hip and leg pain. She had x-rays done through her oncologist and would like to get the results of the same. [facility] Medical History (Updated 10/28/23 @ 18:09 by Isaiah Polk MD) Uterine myoma Class 2 severe obesity with body mass index (BMI) of 35 to 39.9 with serious comorbidity Seborrhea capitis History of drug abuse Breast cancer Surgical History Hx of breast reconstruction History of lumpectomy of left breast H/O LEEP Family History Mother Substance use disorder Father No problems noted. Sister Breast cancer Social History Housing: House Alcohol intake: never Patient Tobacco Use Status: Former Tobacco user Tobacco use type: Cigarette e-Cigarette/Vaping Use: Never Used Second Hand Smoke Exposure: No service: No Current occupational status: employed Gender identity: Female Cognitive needs: No Hearing needs: No Vision needs: Yes Female Reproductive History Menstrual Age of Menarche: 14 Questionnaire Thrive Questionnaire Date Thrive assessed: 10/04/23 Currently or been in a relationship where the following occur: no concerns reported THRIVE Score: 0 ALFONZO-7 AMB Questionnaire ALFONZO-7 Date ALFONZO - 7 assessed: 10/04/23 Source: Developed by Drs. Ghanshyam Fallon, Tonja Lind, Gregg Joseph and colleagues, with an educational allison from [employer] Physical exam (Primary Care) Vital Signs: Last Vital Signs Pulse 73 10/25/23 08:36 BP 142/80 H 10/25/23 08:36 Pulse Ox 98 10/25/23 08:36 Oxygen Delivery Method Room Air 10/25/23 08:36 Care Plan Goal for BP management: Blood pressure is in range. BMI result Body Mass Index 36.1 BMI Assessment/Plan discussion: High (1 lb per week weight loss suggested.) BMI High, discussed plan: lifestyle, weight reduction, dietary and physical activity Tobacco/Smoking Status: Tobacco use Status Tobacco use date assessed 10/25/23 10/25/23 08:39 Patient Tobacco Use Status Former Tobacco user 10/25/23 08:39 Tobacco use type Cigarette 10/25/23 08:39 e-Cigarette/Vaping Use Never Used 10/25/23 08:39 Thrive Assessment: Date of Thrive Assessment Date Thrive assessed 10/04/23 10/25/23 08:39 Currently or been in a relationship where the following occur: no concerns reported Assessment and Plan Assessment & Plan (1) Uterine myoma: Code(s): D25.9 - Leiomyoma of uterus, unspecified (2) Annual physical exam: Code(s): Z00.00 - Encounter for general adult medical examination without abnormal findings Plan: Blood work has been ordered. Her mammogram will be updated. It was done at [facility]. (3) Class 2 severe obesity with body mass index (BMI) of 35 to 39.9 with serious comorbidity: Code(s): E66.01 - Morbid (severe) obesity due to excess calories Plan: This note was dictated after patient left the office. She called in requested a referral to weight management. This has been done. Orders: Orders PT Evaluation and Treatment 10/25/23 M25.551 - Pain in right hip Coding Level of Care Code Est Pt Prev Care 40-64y(10054) Diagnoses Uterine myoma D25.9 Annual physical exam Z00.00 Class 2 severe obesity with body mass index (BMI) of 35 to 39.9 with serious comorbidity E66.01
[2023-10-25 08:36] VITALS: BP 142/80; PULSE 73; O2SAT 98; BMI 36.1
== END 2023-10-25 09:20 | disposition home or self-care (01) ==
PROVIDERS: Visit Provider Internal Medicine
DX: Z00.00 Encounter for general adult medical examination without abnormal findings (principal); D25.9 Leiomyoma of uterus, unspecified; E66.01 Morbid (severe) obesity due to excess calories; Z68.36 Body mass index [BMI] 36.0-36.9, adult
CPT/HCPCS: 99396

== ENCOUNTER 2024-04-10 08:51 | Outpatient (AMB) | payer OTHER, SELFPAY ==
--- NOTE | 2024-04-10 08:59 | A.OFFPC_ITS ---
Vital Signs 04/10/24 09:02 Height 5 ft 1 in Weight 190 lb BMI 35.9 BP 128/78 Blood Pressure Location Lt brachial Position Sitting Pulse 89 Pulse Source Pulse Oximeter Pulse Oximetry (%) 99 Oxygen Delivery Method Room Air Intake Visit Reasons: 6mth f/u Intake Note: Patient is here to follow up on HLD, Hypercholesterolemia. Complaint of right hip pain radiate down the leg with weakness. Christmas Tree Grader Required: No Ship Steward: Not Required per policy Accompanied by: Self / Same As Patient Allergies No Known Allergies [No Known Allergies*] Allergy (Verified 04/10/24 09:23) Medication List - Last Reconciled 04/10/24 by Isaiah Polk MD acetaminophen 650 mg PO Q6H bisacodyl (Dulcolax (bisacodyl)) 10 mg (2 x 5 mg) PO BEDTIME buprenorphine ER (Sublocade) mg subcut cholecalciferol (vitamin D3) 50 mcg PO DAILY cyclobenzaprine 10 mg PO BEDTIME ibuprofen 800 mg PO Q8H PRN polyethylene glycol 3350 (Miralax) 238 grams PO ONCE Tobacco use date assessed: 04/10/24 Dental Screening Dental Screen Date: 10/04/23 HPI 6mth f/u HPI Details 48-year-old female presents to the offic e to discuss her chronic medical conditions. Patient did not get her blood work done that was ordered in the last office visit. She is complaining of worsening right hip pain and leg pain. She has difficulty getting up in the morning. Did not get the physical therapy done that was ordered before. Reports no joint stiffness. Patient has a follow-up with her property and casualty insurance agent later this month for the uterine myoma that was recently discovered. She did not go to the weight management programs which she had requested. Patient would like to see a dietitian before she proceeds to weight management program. [facility] Medical History (Updated 10/28/23 @ 18:09 by Isaiah Polk MD) Uterine myoma Class 2 severe obesity with body mass index (BMI) of 35 to 39.9 with serious comorbidity Seborrhea capitis History of drug abuse Breast cancer Surgical History Hx of breast reconstruction History of lumpectomy of left breast H/O LEEP Family History Mother Substance use disorder Father No problems noted. Sister Breast cancer Rheumatoid arthritis Social History Housing: House Alcohol intake: never Patient Tobacco Use Status: Former Tobacco user Tobacco use type: Cigarette e-Cigarette/Vaping Use: Never Used Second Hand Smoke Exposure: No service: No Current occupational status: employed Gender identity: Female Cognitive needs: No Hearing needs: No Vision needs: Yes Female Reproductive History Menstrual Age of Menarche: 14 Questionnaire Thrive Questionnaire Date Thrive assessed: 10/04/23 ALFONZO-7 AMB Questionnaire ALFONZO-7 Date ALFONZO - 7 assessed: 10/04/23 Source: Developed by Drs. Ghanshyam Fallon, Tonja Lind, Gregg Joseph and colleagues, with an educational allison from [employer]. Physical exam (Primary Care) BMI result Body Mass Index 35.9 BMI Assessment/Plan discussion: High (Nutrition consult suggested) BMI High, discussed plan: lifestyle, weight reduction, dietary and physical activity Tobacco/Smoking Status: Tobacco use Status Tobacco use date assessed 04/10/24 04/10/24 09:04 Patient Tobacco Use Status Former Tobacco user 04/10/24 09:04 Tobacco use type Cigarette 04/10/24 09:04 e-Cigarette/Vaping Use Never Used 04/10/24 09:04 Thrive Assessment: Date of Thrive Assessment Date Thrive assessed 10/04/23 04/10/24 09:04 Const General: cooperative and healthy appearing Nutritional Appearance: well nourished Orientation/consciousness: patient oriented x3 Limitations: no limitations HENMT Head: Yes normal to inspection Eyes General: appearance normal, both eyes and all related structures Neck Neck: Yes normal visual inspection Chest Chest palpation & inspection: normal palpation of entire chest wall Resp Effort & Inspection: normal respiratory effort Neuro General: patient oriented x3 Assessment and Plan Assessment & Plan (1) Class 2 severe obesity with body mass index (BMI) of 35 to 39.9 with serious comorbidity: Code(s): E66.01 - Morbid (severe) obesity due to excess calories Plan: Nutrition consult has been placed. Counseling on the importance of diet and exercise done. (2) Uterine myoma: Code(s): D25.9 - Leiomyoma of uterus, unspecified Plan: Encourage patient to keep her appointment for later this month. (3) Substance use disorder: Code(s): F19.90 - Other psychoactive substance use, unspecified, uncomplicated Plan: Sublingual Suboxone has been changed to injectable Sublocade. (4) Hyperlipidemia: Code(s): E78.5 - Hyperlipidemia, unspecified Plan: Encourage patient to get blood work done. Based on the results I can address her needs for statin. (5) Right hip pain: Code(s): M25.551 - Pain in right hip Plan: Physical therapy suggested. I strongly urged her to keep the appointment. Physical therapy has to be done before any diagnostic testing can be ordered. Orders: Orders PT Evaluation and Treatment Today S76.011A - Strain of muscle, fascia and tendon of right hip, initial encounter Referrals Manager Of Housekeeping Nutrition Referral E66.01 - Morbid (severe) obesity due to excess calories Medications: New cyclobenzaprine 10 mg PO BEDTIME 30 tabs 0RF Coding Level of Care Code Est Pt Level 4 (05036) Complex EM visit Add On G2211 Diagnoses Class 2 severe obesity with body mass index (BMI) of 35 to 39.9 with serious comorbidity E66.01 Uterine myoma D25.9 Substance use disorder F19.90 Hyperlipidemia E78.5 Right hip pain M25.551
[2024-04-10 09:02] VITALS: BP 128/78; PULSE 89; O2SAT 99; BMI 35.9
== END 2024-04-10 09:19 | disposition home or self-care (01) ==
PROVIDERS: PCP Internal Medicine; Visit Provider Internal Medicine
DX: E78.5 Hyperlipidemia, unspecified (principal); M25.551 Pain in right hip; E66.01 Morbid (severe) obesity due to excess calories; Z68.35 Body mass index [BMI] 35.0-35.9, adult; D25.9 Leiomyoma of uterus, unspecified; F19.90 Other psychoactive substance use, unspecified, uncomplicated
CPT/HCPCS: 99214

== ENCOUNTER 2024-06-18 08:50 | Outpatient (AMB) | payer OTHER, SELFPAY ==
[2024-06-18 09:11] VITALS: BMI 35.7
--- NOTE | 2024-06-18 09:11 | A.OFFVIS_ITS ---
VS Expanded 06/18/24 09:11 06/18/24 09:29 Height 5 ft 1 in 5 ft 1 in Weight 189 lb 2.506 oz 189 lb BMI 35.7 35.7 Intake Visit Reasons: Obesity/LVM Allergies No Known Allergies [No Known Allergies*] Allergy (Verified 04/10/24 09:23) Nutrition Presentation Details: Pt presents for MNT for obesity. Pt reports typically skipping meals throughout the day with largest meal in the evening. food frequency fruits: 1-2/d vex/wk dairy: 1-2/d prot: 6-8 oz/d starches> 25/d beverages: water/soda/juice physical activity: daily life activities etoh/smoking---- BS Monitoring Most Recent Diabetes Results: No Data to Display DFI-Stqgfca-Wy.Jeor Equation Height: 5 ft 1 in Weight: 189 lb Resting Metabolic Rate: 1437.49 Calculated Activity Level: Sedentary Calories Needed to Maintain Weight: 1724.99 Diagnosis Nutrition problem #1: food nutri know defi As related to (etiology) #1: diagnosis As evidenced by (sign/symptom) #1: knowledge deficit of diet [facility] Medical History (Updated 10/28/23 @ 18:09 by Isaiah Polk MD) Uterine myoma Class 2 severe obesity with body mass index (BMI) of 35 to 39.9 with serious comorbidity Seborrhea capitis History of drug abuse Breast cancer Surgical History Hx of breast reconstruction History of lumpectomy of left breast H/O LEEP Family History Mother Substance use disorder Father No problems noted. Sister Breast cancer Rheumatoid arthritis Social History Housing: House Alcohol intake: never Patient Tobacco Use Status: Former Tobacco user Tobacco use type: Cigarette e-Cigarette/Vaping Use: Never Used Second Hand Smoke Exposure: No service: No Current occupational status: employed Gender identity: Female Cognitive needs: No Hearing needs: No Vision needs: Yes Female Reproductive History Menstrual Age of Menarche: 14 Assessment & Plan Assessment & Plan (1) Class 2 severe obesity with body mass index (BMI) of 35 to 39.9 with serious comorbidity: Code(s): E66.01 - Morbid (severe) obesity due to excess calories Category: Medical Plan: Wt: 86 Kg ( 06/17 ) Est kcal needs as per MSJ: 1700 (40% carb, 30% protein/fat) Est fluid needs as per 25-30 ml/d: 2600 Est prot per day as per 1 g/kg bw: 86 Recommend fiber intake : 8-10 g per day and gradually increase to 25-28 g per day for women and 35-38 g for men or as tolerated Recommend sodium intake per day : less than 2000 mg Educated patient on: ( R = reviewed V = verbalizes understanding N/R = needs review N/A = not applicable * Food sources of carbohydrate, adequate serving sizes and its role in various health conditions: R * Differences between complex carbohydrates a simple carbohydrates, role of fi ana in diet: R * Lean protein sources of foods: R V NR * Differences between types of fats and role in diet (mono on saturated fat fatty acids, saturated fatty acids, trans fats): R V N/R * Food sources of sodium in salt and healthy modifications for heart health in kidney health: R V R/V * Vitamins and minerals: R V N/R * Healthy plate method concept: R V N/R * Physical activity: Benefits a precaution: R V N/R Patient Instructions: Work on reducing sugars (in coffee/soda/juices, snacks) work on having 60 g of carb or less per meal and 0-20g as snack see meal plan ideas as reference Coding Level of Care Code Nutr Indiv Subseq (92245) Diagnoses Class 2 severe obesity with body mass index (BMI) of 35 to 39.9 with serious comorbidity E66.01 Time Spent (min) 30
[2024-06-18 09:29] VITALS: BMI 35.7
== END 2024-06-18 09:43 | disposition home or self-care (01) ==
PROVIDERS: PCP Internal Medicine; Visit Provider Dietitian, Registered
DX: E66.01 Morbid (severe) obesity due to excess calories (principal)

== ENCOUNTER → 2024-06-18 08:50 | Outpatient (BNVA) | payer OTHER, SELFPAY | PROVIDERS: PCP Internal Medicine; Visit Provider Dietitian, Registered | DX: E66.01 Morbid (severe) obesity due to excess calories (principal); Z68.35 Body mass index [BMI] 35.0-35.9, adult; Z71.3 Dietary counseling and surveillance | CPT/HCPCS: 97803 ==

== ENCOUNTER 2024-08-13 08:49 | Outpatient (AMB) | payer OTHER, SELFPAY ==
--- NOTE | 2024-08-13 08:53 | A.OFFVIS_ITS ---
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 No complaints. Last Pap/HPV was negative in 06/16 Last Mammogram was done at [facility] and was negative according to the patient in 06/17, no reports available Screening colonoscopy scheduled in 10/18 [facility] Medical History Uterine myoma Class 2 severe obesity with body mass index (BMI) of 35 to 39.9 with serious comorbidity Seborrhea capitis History of drug abuse Breast cancer Surgical History Hx of breast reconstruction History of lumpectomy of left breast H/O LEEP Family History Mother Substance use disorder Father No problems noted. Sister Breast cancer Rheumatoid arthritis Social History Housing: House Alcohol intake: never Patient Tobacco Use Status: Former Tobacco user Tobacco use type: Cigarette e-Cigarette/Vaping Use: Never Used Second Hand Smoke Exposure: No service: No Current occupational status: employed Gender identity: Female Cognitive needs: No Hearing needs: No Vision needs: Yes Female Reproductive History Menstrual Age of Menarche: 14 Menopause type: natural Date of last pap smear: 06/22/23 Date of Mammogram: 12/19/22 Review of Systems Const All systems reviewed & are unremarkable except as noted in HPI and below Card Reports as per HPI Resp Reports as per HPI GI Reports as per HPI and Reports no additional complaints Reports as per HPI Physical Exam Vital Signs: Last Vital Signs BP 120/82 08/13/24 08:58 BMI result Body Mass Index 35.4 Const General: cooperative, healthy appearing and comfortable Chest Chest palpation & inspection: normal inspection of the chest and normal palpation of entire chest wall Breast/axilla inspection: normal inspection of the breasts and normal inspection of the axillae Breast/axilla palpation: normal palpation of the breasts, normal palpation of the axillae and no axillary lymphadenopathy Resp Effort & Inspection: normal respiratory effort Auscultation: clear to auscultation bilaterally Percussion: percussion normal Cardio Palpation: normal PMI Rate: regular rate Rhythm: regular rhythm Heart sounds: no murmurs and no rubs Peripheral pulses: Peripheral pulses 2+ throughout GI Inspection: Yes normal to inspection Palpation (GI): Soft to palpation, nontender, no guarding, not rigid and No hepatosplenomegaly present Percussion: Yes normal to percussion Auscultation: normal bowel sounds Rectal Exam - Female: deferred General: Yes bladder normal to palpation External Female Exam: No lesion Speculum Exam - Vagina: normal appearance of the vagina, normal palpation, normal vaginal discharge and not erythematous Speculum Exam - Cervix: normal appearance of the cervix and normal palpation Bimanual exam- vagina & uterus: normal bimanual exam, normal palpation, uterine size normal, bladder normal to palpation, consistency normal and normal palpation Bimanual Exam- Adnexa, other: normal adnexae, no masses and no tenderness Assessment & Plan Assessment & Plan (1) Well woman exam: Comment: History of a LEEP in 2003 Code(s): Z01.419 - Encounter for gynecological examination (general) (routine) without abnormal findings Category: Medical Plan: Cotesting not indicated this year. Instructions given the patient to schedule next screening Mammogram . Counseled the patient about the recommended dietary allowance of 1000 mg of Calcium & 600 IU of vitamin D. The patient was instructed to perform monthly self-breast exams and to schedule an annual exam in a year; All questions answered and the patient verbalized understanding. Instructed the patient to schedule annual exam in a year Orders: Orders MM tomosynthesis screening BI Today Z12.31 - Encounter for screening mammogram for malignant neoplasm of breast Coding Level of Care Code New Pt Prev Care 40-64y(52382) Diagnoses Well woman exam Z01.419
[2024-08-13 08:58] VITALS: BP 120/82; BMI 35.4
== END 2024-08-13 09:56 | disposition home or self-care (01) ==
PROVIDERS: PCP Internal Medicine; Visit Provider Obstetrics & Gynecology
DX: Z01.419 Encounter for gynecological examination (general) (routine) without abnormal findings (principal)
CPT/HCPCS: 99396

== ENCOUNTER → 2024-10-30 08:23 | Outpatient (BNVA) | payer OTHER, SELFPAY | PROVIDERS: PCP Internal Medicine; Visit Provider Internal Medicine | DX: F41.9 Anxiety disorder, unspecified (principal); F32.A Depression, unspecified | CPT/HCPCS: 96127 ==

== ENCOUNTER 2024-11-21 13:23 | Outpatient (AMB) | payer OTHER, SELFPAY ==
--- NOTE | 2024-11-21 13:56 | MHC.PC.OV ---
Vital Signs 11/21/24 13:57 Height 5 ft 1 in Weight 203 lb 8 oz BMI 38.4 BP 114/74 Blood Pressure Location Lt brachial Position Sitting Pulse 78 Pulse Source Pulse Oximeter Temp 97.1 F Temp Source Temporal Artery Scan Pulse Oximetry (%) 98 Oxygen Delivery Method Room Air Intake Visit Reasons: 3 Week F/U Marketing Research Intern Required: No Information Technology Audit Manager: Not Required per policy Accompanied by: Self / Same As Patient Allergies No Known Allergies [No Known Allergies*] Allergy (Verified 11/21/24 14:54) Medication List - Last Reconciled 11/21/24 by Marcela Anderson PA-C acetaminophen 650 mg PO Q6H bisacodyl (Dulcolax (bisacodyl)) 10 mg (2 x 5 mg) PO BEDTIME buprenorphine ER (Sublocade) mg subcut cholecalciferol (vitamin D3) 50 mcg PO DAILY cyclobenzaprine 10 mg PO BEDTIME escitalopram oxalate 10 mg PO DAILY 90 days ibuprofen 800 mg PO Q8H PRN polyethylene glycol 3350 (Miralax) 238 grams PO ONCE Tobacco use date assessed: 11/21/24 Dental Screening Dental Screen Date: 10/30/24 [facility] Medical History Generalized anxiety disorder Uterine myoma Class 2 severe obesity with body mass index (BMI) of 35 to 39.9 with serious comorbidity Seborrhea capitis History of drug abuse Breast cancer Surgical History Hx of breast reconstruction History of lumpectomy of left breast H/O LEEP Family History Mother Substance use disorder Father No problems noted. Sister Breast cancer Rheumatoid arthritis Social History Housing: House Alcohol intake: never Patient Tobacco Use Status: Former Tobacco user Tobacco use type: Cigarette e-Cigarette/Vaping Use: Never Used Second Hand Smoke Exposure: No service: No Current occupational status: employed Gender identity: Female Cognitive needs: No Hearing needs: No Vision needs: Yes Female Reproductive History Menstrual Age of Menarche: 14 Questionnaire Thrive Questionnaire Date Thrive assessed: 10/30/24 I am a: Patient What is your living situation today?: I have a steady place to live Within the past 12 months, did the food you bought not last and you didn't have the money to get more?: Sometimes True Within the past 12 months, did you worry whether your food would run out before you got money to buy more?: Never true Do you have trouble paying for medicines?: No Do you have trouble getting transportation to medical appointments?: No Do you have trouble paying your heating and electricity bill?: No Do you have trouble taking care of your child, family member or friend?: No Do you have trouble with day-to-day activities such as bathing, preparing meals, shopping, managing finances, etc.?: No Are you currently unemployed and looking for a job?: No Are you interested in more education?: No Please select the resources that you would like help with: None Currently or been in a relationship where the following occur: No concerns reported THRIVE Score: 1 ALFONZO-7 AMB Questionnaire ALFONZO-7 Date ALFONZO - 7 assessed: 10/30/24 Source: Developed by Drs. Ghanshyam Fallon, Tonja Lind, Gregg Joseph and colleagues, with an educational allison from [employer]. Physical exam (Primary Care) Vital Signs: Last Vital Signs Temp 97.1 F 11/21/24 13:57 Pulse 78 11/21/24 13:57 BP 114/74 11/21/24 13:57 Pulse Ox 98 11/21/24 13:57 Oxygen Delivery Method Room Air 11/21/24 13:57 Care Plan Goal for BP management: <130/80 at goal BMI result Body Mass Index 38.4 BMI Assessment/Plan discussion: High BMI High, discussed plan: lifestyle, weight reduction, dietary, physical activity and alcohol moderation Tobacco/Smoking Status: Tobacco use Status Tobacco use date assessed 11/21/24 11/21/24 14:00 Patient Tobacco Use Status Former Tobacco user 11/21/24 14:00 Tobacco use type Cigarette 11/21/24 14:00 e-Cigarette/Vaping Use Never Used 11/21/24 14:00 Thrive Assessment: Date of Thrive Assessment Date Thrive assessed 10/30/24 11/21/24 14:00 Currently or been in a relationship where the following occur: No concerns reported Coding Level of Care Code Est Pt Level 4 (61482) Complex EM visit Add On G2211 Diagnoses Generalized anxiety disorder F41.1 Assessment & Plan Assessment & Plan (1) Generalized anxiety disorder: Code(s): F41.1 - Generalized anxiety disorder Category: Medical Plan: Patient to continue Lexapro 10 mg daily. Patient will buy heof-itb-qhhmegk eye drops for her dry eyes and lozenges for her dry mouth. I sent over a consultation for Aga Ward for further recommendations and treatment plan. Patient understands and agreeable to this. Will continue current regimen. Patient to return back in 1 month. Condition is chronic and stable continue to monitor. Plan Plan For the management of anxiety and depression, the current medication regimen is under review due to adverse effects impacting daily tasks, particularly blurred vision affecting computer work. Consideration of dosage adjustment or medication change is needed. A referral to a mental health specialist remains crucial, although verification of the referral's status is necessary. No additional diagnostics or labs were decided during the visit. Continued monitoring and adjustment of therapy will be essential to address symptom control and side effects effectively. Orders: Referrals Psychiatry Outpatient Consultation Service F41.1 - Generalized anxiety disorder Patient Instructions: Patient Instructions - Continue current medication for anxiety disorder. - Use qmki-rky-zrootoa artificial tear drops for dry eyes as needed. - Attend the evaluation with psychiatrist Martha Ward as scheduled. - Follow up in one month with Marcela or Dr. Galvan - Contact us if there are any significant changes in your symptoms. Scribe Plan - Not visible on output: History of Present Illness The patient is a 48-year-old female presenting for a follow-up of her anxiety and depression. Lexapro 10 mg was started to manage these symptoms. She reports mild improvement in irritability and increased patience since initiation of the medication. However, she experiences significant adverse effects such as blurred vision affecting her work activities, dry mouth, and diarrhea. Despite some improvement, her primary concerns regarding anxiety and depression persist. She denies any self-harming ideations, and there have been no additional consultations or follow-up on referrals initially planned at this time. 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 She is at risk for losing her job. Patient experiences significant occupational stress and struggles with work task management. Review of Systems - Eyes: Reports blurred vision. - Gastrointestinal: Reports diarrhea. - Respiratory: Denies any symptoms suggestive of respiratory issues. - Neurological: Reports no thoughts of self-harm. Physical Exam Appearance: Alert. Oriented X3. No acute distress. Head: Normal external exam. Normocephalic. Atraumatic. Eyes: Pupils are equal, round, and reactive to light. Extraocular movements intact. Conjunctiva and sclera normal. Eyelids normal. Vision is blurry. Reports of dry eyes. Throat: Pharynx normal. Uvula midline. Moist mucous membranes. Neck: Normal inspection. Neck supple. Full range of motion. Cardiovascular: Normal heart rate and rhythm. Respiratory: No respiratory distress. Painless inspiration. Back: Full range of motion noted. Skin: Skin warm and dry. Normal skin color. Normal skin turgor. Extremities: Extremities exhibit normal range of motion. Neuro: Oriented X 3. Psych: Patient appears anxious and jittery. Otherwise no auditory visualizations. No thoughts of SI or HI. Patient was informed and verbally consented to the use of an ambient scribe for clinic note documentation during this visit. Discussion Notes During the discussion, I explained the plan to refer her to psychiatrist Reji Ward for a comprehensive assessment to explore possible ADHD. I outlined the importance of evaluating ADHD symptoms and how this may impact her current anxiety management plan. We discussed maintaining her ongoing anxiety medication to prevent exacerbation and offered suggestions to manage the mild dryness side effect. I emphasized the importance of re-evaluation in one month to ensure her symptoms are adequately addressed and that our management strategies are effective.
[2024-11-21 13:57] VITALS: BP 114/74; PULSE 78; TEMP 36.2; O2SAT 98; BMI 38.4
--- OUTSIDE RECORDS SUMMARY | 2024-11-21 15:26 | XMS_ITS | Clinical Summary ---
Author Organization [facility], Address [address] [place] [address] Phone Care Team Providers Care Third Rigger Name Role Phone Unavailable Primary Care Provider Unavailabl e Allergies No known active allergies Medications D3-50 1.25 MG (51540 UT) capsule Take 50,000 Units by mouth every 7 (seven) days 10/27/2019 Active Active Problems Problem Noted Date Diagnosed Date Malignant neoplasm of overla pping sites of left female breast 11/20/2019 Headache 11/20/2019 Social History Tobacco Use Types Packs/Day Years Used Date Smoking Tobacco: Former Cigarettes Q uit: 09/2019 Smokeless Tobacco: Never Alcohol Use Standard Drinks/Week Comments Never 0 (1 standard drink = 0.6 oz pur e alcohol) AUDIT-C Answer Date Recorded Q1: How often do you have a drink containing alc ohol? Never 11/20/2019 Average Number of Drinks Not on file 020 Frequency of Binge Drinking Not on file 10/26 Comments Unknown Sex and Gender Information Value Date Recorded Sex Assigned at Not on file Legal Sex Female 1:34 PM EST Gender Identity Not on file Sexual Orientation Not on file Last Filed Vital Signs Vital Sign Reading Time Taken Comments Blood Pressure 139/84 11/21/2019 12:38 PM EST Pulse 82 11/21/2019 12:38 PM EST Temperature 36.8 ??C (98.2 ??F) 11/21/2019 12:[address] Respiratory Rate 12 11/21/2019 12:38 PM EST Oxygen Saturation 95% 11/21/2019 12:38 PM EST Inhaled Oxygen Concentration - - Weight 90.3 kg (199 lb) 11/21/2019 12:38 PM EST Height 154.9 cm (5' 1 ) 11/21/2019 12:38 PM EST Body Mass Index 37.6 11/21/2019 12:38 PM EST Plan of Treatment Health Maintenance Due Date Last Done Comments Pneumococcal Vaccine: Pediat rics (0 to 5 Years) and At-Risk Patients (6 to 64 Years) (1 of 2 - PCV) 12/02/1983 Hepatitis B Vaccine (1 of 3 - 19+ 3-dose series) 12/01 Influenza Vaccine (#1) [address] [place] [address] [employer]
== END 2024-11-21 15:52 | disposition home or self-care (01) ==
PROVIDERS: PCP Internal Medicine; Visit Provider Physician Assistant Medical
DX: F41.1 Generalized anxiety disorder (principal)

== ENCOUNTER 2024-11-28 13:48 | Outpatient (AMB) | payer OTHER, SELFPAY ==
--- NOTE | 2024-11-28 13:59 | A.OFFPSYCH_ITS ---
Intake Intake Visit Reasons: consultation Interventional Radiology Rn Required: No Allergies No Known Allergies [No Known Allergies*] Allergy (Verified 11/21/24 14:54) Medication List - Last Reconciled 12/01/24 by Barby Griggs APRN acetaminophen 650 mg PO Q6H bisacodyl (Dulcolax (bisacodyl)) 10 mg (2 x 5 mg) PO BEDTIME buprenorphine ER (Sublocade) mg subcut bupropion HCl SR (Wellbutrin SR) 100 mg PO QAM cholecalciferol (vitamin D3) 50 mcg PO DAILY cyclobenzaprine 10 mg PO BEDTIME escitalopram oxalate 10 mg PO DAILY 90 days ibuprofen 800 mg PO Q8H PRN polyethylene glycol 3350 (Miralax) 238 grams PO ONCE HPI- Psychiatric Chief Complaint: consultation HPI Narrative: Pt referred by PCP for evaluation of anxiety, depression, irritability, low motivation, decreased concentration. 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 Pt was started on lexapro 10mg and noted minimal improvements in symptoms, but stated anxiety and depression were still present. She has experienced significant side effects: blurred vision, dry eye, dry mouth; she stated these symptoms have been effecting her at use of the computer at work. Pt is in need of evaluation for medication optimization. pt reports the abilty to attend to details and documentation for work is getting more difficult; she is less able to organize and complete tasks; she has a long history of sleep difficulties with restless sleep and periodic sleep paralysis. Pt reports great dicciculty with functioning once she got into middle school as a child. Before that she did well academically but was often in trouble for being too chatty. she had more trouble socially and often got in fights with peers. she started to use nicotine early. In high school, her behavior was more impulsive; she used more alcohol a nd drugs. she describes being promiscuous. she skipped school frequently and almost didn't graduate . she did her assignments last minute. she did go on to college and then graduate school but always procrastinated and needed extra time for assignments. There is a family histroy of Anxiety and ADHD. Pt shows no signs of roberto; no SI or HI. Pts PHQ9= 9 and GAD7=14. He ADHD scale = 18. Past Psychiatric History: therapist Ghanshyam Cox; on sublicaid injection -has been tapering over the last year Subjective Subjective Subjective Medication Compliance: Yes Side effects from medications: No Review of Systems Medical Review of Systems: unchanged Mental Status Exam Mental Status Exam Patient Appearance: Well Grooomed Patient Orientation: Person, Place, Time and Situation Level of Consciousness: Awake, Appropriate and Alert Patient Behavior: Appropriate, Cooperative and Good Eye Contact Mood Description: Appropriate, Anxious and Sad Affect Description: Anxious and Sad Patient Cognition Impaired: No Ability to Follow Directions: Good Speech Pattern: Clear, Appropriate and Coherent Memory Description: Intact Hallucinations: None Delusions: Not Present Perceptual Disturbances: Derealization (episodically) Thought Process: Intact and Goal Oriented Thought Content: positive for Intact and positive for Goal Oriented Judgement: Fair Assessment and Plan Assessment & Plan (1) ADHD (attention deficit hyperactivity disorder), combined type: Status: Acute Code(s): F90.2 - Attention-deficit hyperactivity disorder, combined type (2) Generalized anxiety disorder: Status: Acute Code(s): F41.1 - Generalized anxiety disorder (3) Depression, unspecified: Status: Acute Qualifiers: Depression Type: major depressive disorder Major depression recurrence: recurrent Major depression episode severity: moderate Code(s): F32.A - Depression, unspecified Plan Pt very likely has ADHD combined type in addition to depression and anxiety rule out mood disorder cyclothymia vs bipolar II Medications: New bupropion HCl SR (Wellbutrin SR) 100 mg PO QAM 30 tabs 0RF Orders: Orders Ferritin 11/28/24 F41.1 - Generalized anxiety disorder, F90.2 - Attention- deficit hyperactivity disorder, combined type Zinc 11/28/24 F41.1 - Generalized anxiety disorder, F90.2 - Attention-deficit hyperactivity disorder, combined type Vitamin B1 11/28/24 F41.1 - Generalized anxiety disorder, F90.2 - Attention- deficit hyperactivity disorder, combined type Vitamin D 25-OH Total 11/28/24 F41.1 - Generalized anxiety disorder, F90.2 - Attention-deficit hyperactivity disorder, combined type, R53.83 - Other fatigue Vitamin B12 and Folate 11/28/24 F41.1 - Generalized anxiety disorder, F90.2 - Attention-deficit hyperactivity disorder, combined type IRON PROFILE 11/28/24 F41.1 - Generalized anxiety disorder, F90.2 - Attention- deficit hyperactivity disorder, combined type Transferrin 11/28/24 F41.1 - Generalized anxiety disorder, F90.2 - Attention- deficit hyperactivity disorder, combined type Vitamin B6 11/28/24 F41.1 - Generalized anxiety disorder, F90.2 - Attention- deficit hyperactivity disorder, combined type Counseling and coordination of Care Pt. Self Management counseling: Nutrition education and improvement, Sleep hygiene, General coping skills and Problem solving Medication management counseling: Effectiveness, Side effects, Dosing range, Duration, Drug interaction and Adherence Diagnosis and Prognosis Counseling: Accuracy of diagnosis, Prognosis over time, Impact of diagnosis on life functions, Impact of family relationship, Problematic behaviors secondary to diagnosis and Adequacy of current interventions Details: I spent 70 minutes reviewing the record, seeing the patient and documenting in the medical record. Counseling provided to the patient/caregiver as outlined below. Addressed patient/caregiver concerns regarding current medication regime including effective adherence. Addressed patient/caregiver concerns regarding diagnosis and prognosis including accuracy of diagnosis, prognosis over time, impact of diagnosis. Addressed patient/caregiver concerns regarding impact of recent stressors. [facility] Medical History Generalized anxiety disorder Uterine myoma Class 2 severe obesity with body mass index (BMI) of 35 to 39.9 with serious comorbidity Seborrhea capitis History of drug abuse Breast cancer Surgical History Hx of breast reconstruction History of lumpectomy of left breast H/O LEEP Family History Mother Substance use disorder Father No problems noted. 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
--- OUTSIDE RECORDS SUMMARY | 2024-11-28 15:28 | XMS_ITS | Continuity of Care Document ---
Author Organization [facility] Address [address] [place] [address]- Care Team Providers Care Sewing Techniques Demonstrator Name Role Phone Felicitas COSTELLO, Isaiah Curry Primary Care Physic larry Encounter [facility] Date(s): 10/23/24 - 11/22/[address] [facility] [address] [place] [id number] Attending Physician: Clotilde Ruffin Admitting Physician: Clotilde Ruffin Referring Physician: Clotilde Ruffin Encounter Type: Triage Allergies, Adverse Reactions, Alerts Substance Criticality Severity Reaction Reaction Severity Status cephalexin Low criticality Mild Act radha Immunizations Given and Recorded Vaccine Date Status Refusal Reason pneumococcal 13-valent vaccine 11/21/19 Given Problem List Condition Confirmation Course Effective Dates Status H ealth Status Informant Personal history of breast cancer Confirmed Active S/P partial mastectomy Confirmed Active Infiltrating lobular carcinoma of breast, stage 2 Confirmed Active Malignant neoplasm of lower-outer quadrant of left breast of female, estrogen receptor negative Confirmed Active Postoperative breast asymmetry Confirmed Active Social History Social History Type Response Smoking Status Former smoker, quit more than 30 days ago; Other: Pt states she quit smoking about 10 years ago; entered on: 11/13/19 Sex Female Sex Representation Female (finding) Patient Care team information Care Team Personnel Name: Barby Goetz Position: S Onco RN Member Role: Primary Care Nurse Name: Meet Fuentes RN Position: S RN Member Role: Primary Care Nurse Name: Cesilia Kim RN Position: S Onco RN Member Role: Primary Care Nurse Name: Sydney Chen RN Position: S Onco RN Member Role: Primary Care Nurse Name: Felicitas COSTELLO, Isaiah Curry Position: Reference Physician Member Role: PCP Address: [address] [place] [address]- Telecom: Care Team Related Persons Name: KIYA SAM Name: KIRBY LOCKHART Insurance Providers Guarantor name: BRITTA ESPINOZAMartínez [facility] Plan Information #: 1 Payer: [facility] Member Number: NA Policy Number: NA Group Number: NA
--- OUTSIDE RECORDS SUMMARY | 2024-11-28 15:28 | XMS_ITS | Clinical Summary ---
Author Organization [facility], Address [address] [place] [address] Phone Care Team Providers Care Manager Logistic Name Role Phone Unavailable Primary Care Provider Unavailabl e Allergies No known active allergies Medications D3-50 1.25 MG (77842 UT) capsule Take 50,000 Units by mouth [...] series) 12/01 Influenza Vaccine (#1) [address] [place] [address] [employer]
== END 2024-11-28 15:15 | disposition home or self-care (01) ==
LOC: HO.HOP 13:48
PROVIDERS: PCP Internal Medicine; Visit Provider Clinical Nurse Specialist Psychiatric/Mental Health
DX: F90.2 Attention-deficit hyperactivity disorder, combined type (principal); F41.1 Generalized anxiety disorder; F32.A Depression, unspecified
CPT/HCPCS: 90792

== ENCOUNTER 2024-11-28 13:48 | Outpatient (REF) | payer OTHER, SELFPAY ==
[2024-11-28 16:13] LABS: Hematocrit 38.1 % (37.0-47.0); Hemoglobin 13.1 g/dl (12.0-16.0); Mean Corpuscular HGB Conc 34.4 g/dl (31.0-35.0); Mean Corpuscular Volume 87.2 fL (80.0-98.0); Mean Platelet Volume 8.7 fL (9.4-12.3); Platelet Count 293 X10*3/uL (160-400); Red Blood Count 4.37 X10*6/uL (4.20-5.50); Red Cell Distribution Width 14.2 % (11.0-16.0); White Blood Count 6.8 X10*3/uL (4.8-10.8)
--- OUTSIDE RECORDS SUMMARY | 2024-11-28 16:48 | XMS_ITS | Clinical Summary ---
Author Organization [facility], Address [address] [place] [address] Phone Care Team Providers Care Religious Education Director Name Role Phone Unavailable Primary Care Provider Unavailabl e Allergies No known active allergies Medications D3-50 1.25 MG (04335 UT) capsule Take 50,000 Units by mouth [...] series) 12/01 Influenza Vaccine (#1) [address] [place] [address] [employer]
[2024-11-28 17:17] LABS: Alanine Aminotransferase 40 U/L (0-31); Albumin Level 4.1 g/dL (3.5-5.0); Alkaline Phosphatase 52 U/L (39-117); Anion Gap 10 (12-20); Aspartate Amino Transferase 28 U/L (5-31); Bilirubin Direct 0.1 mg/dL (0.0-0.5); Bilirubin Total 0.3 mg/dL (0.0-1.0); Blood Urea Nitrogen 11 mg/dL (9-16); Calcium 8.8 mg/dL (8.4-10.2); Carbon Dioxide 27 mmol/L (22-29); Chloride 104 mmol/L (96-108); Cholesterol 241 mg/dL (<200); Estimated Glomerular Filt Rate > 60; Glucose Random 89 mg/dL (60-115); HDL Cholesterol 48 mg/dL (>40); Iron 73 mcg/dL (30-160); LDL Cholesterol Calculated 168 mg/dL (<100); Percent Iron Saturation 24 % (15-50); Potassium 3.9 mmol/L (3.3-5.1); Sodium 137 mmol/L (135-145); Total Iron Binding Capacity 298 mcg/dL (228-428); Total Protein 7.5 g/dL (6.5-8.0); Triglycerides 126 mg/dL (<150); Unsaturated Iron Binding 225 ug/dL
[2024-11-28 17:19] LABS: Ferritin 71 ng/mL (10-250); Vitamin D 25-OH Total 10.4 ng/mL (>30)
[2024-11-28 17:32] LABS: Thyroid Stimulating Hormone 1.93 uIU/mL (0.32-4.0)
[2024-11-28 17:34] LABS: Folate 5.5 ng/mL (> or = 4.0); Vitamin B12 515 pg/mL (200-900)
[2024-11-30 06:04] LABS: Transferrin 278 mg/dL (188-341)
[2024-12-01 22:34] LABS: Zinc 67 mcg/dL (60-130)
[2024-12-04 16:13] LABS: Vitamin B6 35.9 ng/mL (2.1-21.7)
[2024-12-07 08:49] LABS: Vitamin B1 13 nmol/L (8-30)
== END 2024-11-28 13:49 | disposition home or self-care (01) ==
LOC: HO.LAB 13:48
PROVIDERS: PCP Internal Medicine; Referring Provider Internal Medicine; Visit Provider Clinical Nurse Specialist Psychiatric/Mental Health
DX: F41.1 Generalized anxiety disorder (principal); F32.A Depression, unspecified; F90.2 Attention-deficit hyperactivity disorder, combined type; R53.83 Other fatigue; Z13.6 Encounter for screening for cardiovascular disorders
CPT/HCPCS: 36415; 80048; 80061; 80076; 82306; 82607; 82728; 82746; 83540; 84207; 84425; 84443; 84466; 84630; 85027; 90792

== ENCOUNTER 2024-12-09 14:21 | Outpatient (AMB) | payer OTHER, SELFPAY ==
--- NOTE | 2024-12-09 14:47 | A.OFFPSYCH_ITS ---
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 Allergies No Known Allergies [No Known Allergies*] Allergy (Verified 11/21/24 14:54) Medication List - Last Reconciled 12/09/24 by Barby Griggs APRN acetaminophen 650 mg PO Q6H bisacodyl (Dulcolax (bisacodyl)) 10 mg (2 x 5 mg) PO BEDTIME bupropion HCl XL (Wellbutrin XL) 150 mg PO QAM cholecalciferol (vitamin D3) 50 mcg PO DAILY cyclobenzaprine 10 mg PO BEDTIME dextroamphetamine-amphetamine 10 mg ER (Adderall XR) 10 mg PO DAILY@1230 escitalopram oxalate 10 mg PO DAILY 90 days ibuprofen 800 mg PO Q8H PRN polyethylene glycol 3350 (Miralax) 238 grams PO ONCE HPI- Psychiatric Chief Complaint: depression HPI Narrative: Pt reports improvement; her mood is improved. she feels much happier and more hopeful. She continues with trouble getting tasks done at work and home; she is having trouble staying focused enough to get paperwork completed and stay on task at home to make dinner and do housework. sleep intact. no SI or HI. no roberto noted. no alcohol or drug use Past Psychiatric History: therapist Ghanshyam Cox; on sublicaid injection -has been tapering over the last year Mental Status Exam Mental Status Exam Patient Appearance: Well Grooomed and Appropriate Patient Orientation: Person, Place, Time and Situation Level of Consciousness: Awake, Appropriate and Alert Patient Behavior: Appropriate, Cooperative and Anxious Mood Description: Appropriate, Depressed, Anxious and Sad Affect Description: Appropriate, Depressed, Anxious and Sad Patient Cognition Impaired: No Ability to Follow Directions: Good Speech Pattern: Clear, Appropriate and Coherent Memory Description: Intact Hallucinations: None Delusions: Not Present Thought Process: Intact and Goal Oriented Thought Content: positive for Intact and positive for Goal Oriented Judgement: Good Assessment and Plan Assessment & Plan (1) Depression, unspecified: Status: Acute Qualifiers: Depression Type: major depressive disorder Major depression recurrence: recurrent Major depression episode severity: moderate Code(s): F32.A - Depression, unspecified (2) ADHD (attention deficit hyperactivity disorder), combined type: Status: Acute Code(s): F90.2 - Attention-deficit hyperactivity disorder, combined type (3) Generalized anxiety disorder: Status: Acute Code(s): F41.1 - Generalized anxiety disorder Plan increase wellbutrin to XL 150mg qam add adderall XR 10mg at noon daily start vitamin D3 2000 IU daily stay hydrated return in 2 weeks Medications: New bupropion HCl XL (Wellbutrin XL) 150 mg PO QAM 30 tabs 1RF dextroamphetamine-amphetamine 10 mg ER (Adderall XR) Partial Fill upon patient request. 10 mg PO DAILY@1230 30 caps 0RF Discontinued bupropion HCl SR (Wellbutrin SR) Discontinued Reason: Patient Completed Course 100 mg PO QAM 30 tabs 0RF Counseling and coordination of Care Details: I spent [] minutes reviewing the record, seeing the patient and documenting in the medical record. Counseling provided to the patient/caregiver as outlined below. Addressed patient/caregiver concerns regarding current medication regime including effecti ve adherence. Addressed patient/caregiver concerns regarding diagnosis and prognosis including accuracy of diagnosis, prognosis over time, impact of diagnosis. Addressed patient/caregiver concerns regarding impact of recent stressors. [facility] Medical History (Updated 12/09/24 @ 15:02 by Barby Griggs APRN) Uterine myoma Class 2 severe obesity with body mass index (BMI) of 35 to 39.9 with serious comorbidity Seborrhea capitis History of drug abuse Breast cancer Surgical History Hx of breast reconstruction History of lumpectomy of left breast H/O LEEP Family History Mother Substance use disorder Father No problems noted. 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; grew up in area lived with mother, father and younger sister Substance History: etoh and opiates as a teen until then stopped - on sublicaid injection [facility] Trauma History: yes parents both etohics; parents 2 weeks apart when pt age 23 Coding Level of Care Code Est Pt Level 4 (57685) Diagnoses Depression, unspecified F32.A Depression Type: major depressive disorder Major depression recurrence: recurrent Major depression episode severity: moderate ADHD (attention deficit hyperactivity disorder), combined type F90.2 Generalized anxiety disorder F41.1
--- OUTSIDE RECORDS SUMMARY | 2024-12-09 17:08 | XMS_ITS | Clinical Summary ---
Author Organization [facility], Address [address] [place] [address] Phone Care Team Providers Care Wireless Communications Engineer Name Role Phone Unavailable Primary Care Provider Unavailabl e Allergies No known active allergies Medications D3-50 1.25 MG (39671 UT) capsule Take 50,000 Units by mouth [...] series) 12/01 Influenza Vaccine (#1) [address] [place] [address] [employer]
--- OUTSIDE RECORDS SUMMARY | 2024-12-09 17:08 | XMS_ITS | Continuity of Care Document ---
Author Organization [facility] Address [address] [place] [address]- Care Team Providers Care Home Agent Name Role Phone Felicitas COSTELLO, Isaiah Curry Primary Care Physic larry [place] [facility] [place]/24 - 11/30/24 [facility] [address] [place] [id number] Encounter Type: Triage Allergies, Adverse Reactions, Alerts [...] RN Member Role: Primary Care Nurse Name: Isaiah Polk MD Position: Reference Physician Member Role: PCP Address: [address] [place] [address] [place] [id number]- [place] Telecom: Care Team Related Persons Name: KIYA SAM Name: KIRBY LOCKHART Insurance Providers Guarantor name: BRITTA ESPINOZAMartínez [facility] Plan Information #: 1 Payer: [facility] Member Number: NA Policy Number: NA Group Number: NA
--- OUTSIDE RECORDS SUMMARY | 2024-12-09 17:08 | XMS_ITS | Continuity of Care Document ---
Author Organization [facility] Address [address] [place] [address]- Care Team Providers Care Freight Car Cleaner Name Role Phone Felicitas COSTELLO, Isaiah Curry Primary Care Physic larry Encounter [facility] Date(s): 10/31/24 - 11/30/24 [facility] [address] [place] [id number] Encounter Type: Triage Allergies, Adverse Reactions, [...] Reference Physician Member Role: PCP Address: [address] [place] [address] [place] [address]- [place] Telecom: Care Team Related Persons Name: KIYA SAM Name: KIRBY LOCKHART Insurance Providers Guarantor name: BRITTA ESPINOZAMartínez [facility] Plan Information #: 1 Payer: [facility] Member Number: NA Policy Number: NA Group Number: NA
== END 2024-12-09 14:52 | disposition home or self-care (01) ==
LOC: HO.HOP 14:21
PROVIDERS: PCP Internal Medicine; Visit Provider Clinical Nurse Specialist Psychiatric/Mental Health
DX: F32.A Depression, unspecified (principal); F90.2 Attention-deficit hyperactivity disorder, combined type; F41.1 Generalized anxiety disorder
CPT/HCPCS: 99214

== ENCOUNTER → 2024-12-09 14:21 | Outpatient (BNVA) | payer OTHER, SELFPAY | PROVIDERS: PCP Internal Medicine; Visit Provider Clinical Nurse Specialist Psychiatric/Mental Health ==

== ENCOUNTER 2024-12-23 13:59 | Outpatient (AMB) | payer OTHER, SELFPAY ==
--- NOTE | 2024-12-23 14:25 | A.OFFPSYCH_ITS ---
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 She can not sit still and focus and attend to tasks. She reports the adderall didn't feel like anything; neither helpful nor with side effects. She has not been able to catch up with papaerwork and her work is giving her harder deadlines. She did not sleep last night due to worry about her paperwork. she has had 2 panic attacks in the last 2 weeks specifically about work. No SI No HI. PHQ9=8 and GAD7=8. Pt reports no cravings to use opiates. Past Psychiatric History: therapist Ghanshyam Cox; on sublicaid injection -has been tapering over the last year Subjective Subjective Subjective Medication Compliance: Yes Side effects from medications: No Review of Systems Medical Review of Systems: unchanged Mental Status Exam Mental Status Exam Patient Appearance: Well Grooomed and Appropriate Patient Orientation: Person, Place, Time and Situation Level of Consciousness: Awake, Appropriate and Alert Patient Behavior: Appropriate and Cooperative Mood Description: Appropriate, Anxious, Sad and Nervous Affect Description: Appropriate, Anxious, Sad and Nervous Patient Cognition Impaired: No Ability to Follow Directions: Good Speech Pattern: Clear and Appropriate Memory Description: Intact Hallucinations: None Delusions: Not Present Thought Process: Intact, Distracted and Rumination Thought Content: positive for Intact and positive for Preoccupation Judgement: Fair Assessment and Plan Assessment & Plan (1) ADHD (attention deficit hyperactivity disorder), combined type: Status: Acute Code(s): F90.2 - Attention-deficit hyperactivity disorder, combined type (2) Generalized anxiety disorder: Status: Acute Code(s): F41.1 - Generalized anxiety disorder (3) Depression, unspecified: Status: Acute Qualifiers: Depression Type: major depressive disorder Major depression recurrence: recurrent Major depression episode severity: moderate Code(s): F32.A - Depression, unspecified Plan stop adderall start vyvanse 40mg daily in am continue lexapro 10 mg daily follow up in 2 weeks Medications: New lisdexamfetamine (Vyvanse) Partial Fill upon patient request. 40 mg PO QAM 30 caps 0RF bupropion HCl SR (Wellbutrin SR) 100 mg PO QAM 30 tabs 0RF Refilled escitalopram oxalate 10 mg PO DAILY 90 tabs 1RF 90 days Discontinued bupropion HCl XL (Wellbutrin XL) Discontinued Reason: Doctor's Order 150 mg PO QAM 30 tabs 1RF Counseling and coordination of Care Pt. Self Management counseling: Maintenance-social rhythm, Mod caffeine/ETOH i ntake, Sleep hygiene and General coping skills Medication management counseling: Effectiveness, Side effects, Dosing range, Duration, Drug interaction and Adherence Diagnosis and Prognosis Counseling: Accuracy of diagnosis, Prognosis over time, Impact of diagnosis on life functions, Impact of family relationship, Problematic behaviors secondary to diagnosis and Adequacy of current interventions Details: I spent 35 minutes reviewing the record, seeing the patient and documenting in the medical record. Counseling provided to the patient/caregiver as outlined below. Addressed patient/caregiver concerns regarding current medication regime including effective adherence. Addressed patient/caregiver concerns regarding diagnosis and prognosis including accuracy of diagnosis, prognosis over time, impact of diagnosis. Addressed patient/caregiver concerns regarding impact of recent stressors. [facility] Medical History (Updated 12/09/24 @ 15:02 by Barby Griggs APRN) Uterine myoma Class 2 severe obesity with body mass index (BMI) of 35 to 39.9 with serious comorbidity Seborrhea capitis History of drug abuse Breast cancer Surgical History Hx of breast reconstruction History of lumpectomy of left breast H/O LEEP Family History Mother Substance use disorder Father No problems noted. 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
--- OUTSIDE RECORDS SUMMARY | 2024-12-23 16:40 | XMS_ITS | Clinical Summary ---
Author Organization [facility], Address [address] [place] [address] Phone Care Team Providers Care Clinical Social Worker Name Role Phone Unavailable Primary Care Provider Unavailabl e Allergies No known active allergies Medications D3-50 1.25 MG (68260 UT) capsule Take 50,000 Units by mouth [...] series) 12/01 Influenza Vaccine (#1) [address] [place] [place] [address] [employer]
== END 2024-12-23 14:41 | disposition home or self-care (01) ==
LOC: HO.HOP 13:59
PROVIDERS: PCP Internal Medicine; Visit Provider Clinical Nurse Specialist Psychiatric/Mental Health
DX: F90.2 Attention-deficit hyperactivity disorder, combined type (principal); F41.1 Generalized anxiety disorder; F32.A Depression, unspecified
CPT/HCPCS: 99214

== ENCOUNTER → 2024-12-23 13:59 | Outpatient (BNVA) | payer OTHER, SELFPAY | PROVIDERS: PCP Internal Medicine; Visit Provider Clinical Nurse Specialist Psychiatric/Mental Health ==

== ENCOUNTER 2025-01-06 13:29 | Outpatient (AMB) | payer OTHER, SELFPAY ==
--- NOTE | 2025-01-06 13:43 | A.OFFPSYCH_ITS ---
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 Required: No Allergies No Known Allergies [No Known Allergies*] Allergy (Verified 11/21/24 14:54) Medication List - Last Reconciled 01/06/25 by Barby Griggs APRN acetaminophen 650 mg PO Q6H bisacodyl (Dulcolax (bisacodyl)) 10 mg (2 x 5 mg) PO BEDTIME bupropion HCl SR (Wellbutrin SR) 100 mg PO QAM cholecalciferol (vitamin D3) 50 mcg PO DAILY clonazepam 0.5 mg PO BEDTIME PRN cyclobenzaprine 10 mg PO BEDTIME dextroamphetamine-amphetamine 20 mg (Adderall) 20 mg PO DAILY@1500 dextroamphetamine-amphetamine 25 mg ER (Adderall XR) 25 mg PO QAM escitalopram oxalate 10 mg PO DAILY 90 days ibuprofen 800 mg PO Q8H PRN polyethylene glycol 3350 (Miralax) 238 grams PO ONCE HPI- Psychiatric Chief Complaint: f/u consultation HPI Narrative: Pt reports much improvement; she is taking adderall xr 25 mg in am and it works till approximartely 330 or 4 pm . She is much ore focused, much calmer and less distracted; able to stay on tasks and get her work done. she is getting her notes done but has not been able to fully catch up yet. she is much less anxious, sleeping well. she did not use the clonazepam as she felt she didn't need it;has not had any panic attacks. No side effect from adderall Past Psychiatric History: therapist Ghanshyam Cox; on sublicaid injection -has been tapering over the last year Subjective Subjective Subjective Medication Compliance: Yes Side effects from medications: No Review of Systems Medical Review of Systems: unchanged Mental Status Exam Mental Status Exam Patient Appearance: Well Grooomed and Appropriate Patient Orientation: Person, Place, Time and Situation Level of Consciousness: Awake, Appropriate and Alert Patient Behavior: Appropriate Mood Description: Calm Affect Description: Calm Patient Cognition Impaired: No Ability to Follow Directions: Good Speech Pattern: Clear Memory Description: Intact Hallucinations: None Delusions: Not Present Thought Process: Intact Thought Content: positive for Intact Judgement: Good Assessment and Plan Assessment & Plan (1) ADHD (attention deficit hyperactivity disorder), combined type: Status: Acute Code(s): F90.2 - Attention-deficit hyperactivity disorder, combined type (2) Generalized anxiety disorder: Status: Acute Code(s): F41.1 - Generalized anxiety disorder Plan continue adderall XR 25 mg qam and adderall 20 mg at 3pm daily return in 4 weeks Medications: New dextroamphetamine-amphetamine 20 mg (Adderall) Partial Fill upon patient request. 20 mg PO DAILY@1500 30 tabs 0RF Discontinued lisdexamfetamine (Vyvanse) Partial Fill upon patient request. Discontinued Reason: Insurance Denied 40 mg PO QAM 30 caps 0RF Counseling and coordination of Care Pt. Self Management counseling: Mod caffeine/ETOH intake, Nutrition education and improvement and General coping skills Medication management counseling: Effectiveness, Side effects, Dosing range, Duration, Drug interaction and Adherence Diagnosis and Prognosis Counseling: Accuracy of diagnosis, Prognosis over time, Impact of diagnosis on life functions, Impact of family relationship, Problematic behaviors secondary to diagnosis and Adequacy of current interventions Details: I spent 35 minutes reviewing the record, seeing the patient and documenting in the medical record. Counseling provided to the patient/caregiver as outlined below. Addressed patient/caregiver concerns regarding current medication regime including effective adherence. Addressed patient/caregiver concerns regarding diagnosis and prognosis including accuracy of diagnosis, prognosis over time, impact of diagnosis. Addressed patient/caregiver concerns regarding impact of recent stressors. [facility] Medical History (Updated 12/09/24 @ 15:02 by Barby Griggs APRN) Uterine myoma Class 2 severe obesity with body mass index (BMI) of 35 to 39.9 with serious comorbidity Seborrhea capitis History of drug abuse Breast cancer Surgical History Hx of breast reconstruction History of lumpectomy of left breast H/O LEEP Family History Mother Substance use disorder Father No problems noted. 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
--- OUTSIDE RECORDS SUMMARY | 2025-01-06 16:28 | XMS_ITS | Clinical Summary ---
Author Organization [facility], Address [address] [place] [address] Phone Care Team Providers Care Mowing Machine Operator Name Role Phone Unavailable Primary Care Provider Unavailabl e Allergies No known active allergies Medications D3-50 1.25 MG (88372 UT) capsule Take 50,000 Units by mouth [...] Health Maintenance Due Date Last Done Comments Hepatitis B Vaccine (1 of 3 - 19+ 3-dose series) 12/01 Pneumococcal Vaccine: Peds ( 0 to 5 Years) and At-Risk Patients (6 to 49 Years) (1 of 2 - PCV) 1996 Influenza Vaccine (Season Ended) [address] [place] [address] [employer]
== END 2025-01-06 15:09 | disposition home or self-care (01) ==
LOC: HO.HOP 13:29
PROVIDERS: PCP Internal Medicine; Visit Provider Clinical Nurse Specialist Psychiatric/Mental Health
DX: F90.2 Attention-deficit hyperactivity disorder, combined type (principal); F41.1 Generalized anxiety disorder
CPT/HCPCS: 99214

== ENCOUNTER → 2025-01-06 13:29 | Outpatient (BNVA) | payer OTHER, SELFPAY | PROVIDERS: PCP Internal Medicine; Visit Provider Clinical Nurse Specialist Psychiatric/Mental Health ==

== ENCOUNTER 2025-02-03 13:34 | Outpatient (AMB) | payer OTHER, SELFPAY ==
--- NOTE | 2025-02-03 13:40 | A.OFFPSYCH_ITS ---
Intake Intake Visit Reasons: f/u consultation Ambulance Attendant Required: No Allergies No Known Allergies [No Known Allergies*] Allergy (Verified 11/21/24 14:54) Medication List - Last Reconciled 02/03/25 by Barby Griggs APRN acetaminophen 650 mg PO Q6H bisacodyl (Dulcolax (bisacodyl)) 10 mg (2 x 5 mg) PO BEDTIME bupropion HCl SR (Wellbutrin SR) 100 mg PO QAM cholecalciferol (vitamin D3) 50 mcg PO DAILY clonazepam 0.5 mg PO BEDTIME PRN cyclobenzaprine 10 mg PO BEDTIME dextroamphetamine-amphetamine 20 mg (Adderall) 20 mg PO DAILY@1500 dextroamphetamine-amphetamine 25 mg ER (Adderall XR) 25 mg PO QAM escitalopram oxalate 10 mg PO DAILY 90 days ibuprofen 800 mg PO Q8H PRN polyethylene glycol 3350 (Miralax) 238 grams PO ONCE HPI- Psychiatric Chief Complaint: f/u consultation HPI Narrative: pt reports much improvement; she reports improved mood, less overwhelmed, less depressed, less anxious. She is sleeping well. she is more organized and more focused.She is funtioning better. she is still struggling with keeeping routines at times; she feels the adderall wear off around 2pm and doesn't take the additional 20mg until dinner time. she struggles to get things done between 2 and 5 or 6 pm. She dneis any SI or HI; she denies any illicit drug use. No medical changes. Past Psychiatric History: therapist Ghanshyam Cox; on sublicaid injection -has been tapering over the last year Subjective Subjective Subjective Medication Compliance: Yes Side effects from medications: No Review of Systems Medical Review of Systems: unchanged Mental Status Exam Mental Status Exam Patient Appearance: Well Grooomed Patient Orientation: Person, Place, Time and Situation Level of Consciousness: Awake and Appropriate Patient Behavior: Appropriate Mood Description: Happy, Cheerful and Anxious (slightly) Affect Description: Happy, Cheerful and Anxious Patient Cognition Impaired: No Ability to Follow Directions: Good Speech Pattern: Clear and Coherent Memory Description: Intact Hallucinations: None Delusions: Not Present Thought Process: Intact and Goal Oriented Thought Content: positive for Intact and positive for Goal Oriented Judgement: Good Assessment and Plan Assessment & Plan (1) ADHD (attention deficit hyperactivity disorder), combined type: Status: Acute Code(s): F90.2 - Attention-deficit hyperactivity disorder, combined type (2) Depression, unspecified: Status: Acute Qualifiers: Depression Type: major depressive disorder Major depression recurrence: recurrent Major depression episode severity: moderate Code(s): F32.A - Depression, unspecified Plan continue medications per below d/c clonazepam as pt not taking increase adderall XR to 30mg in am and take adderall 20mg at 3pm Medications: New dextroamphetamine-amphetamine 30 mg ER (Adderall XR) Partial Fill upon patient request. 30 mg PO QAM 30 caps 0RF Refilled dextroamphetamine-amphetamine 20 mg (Adderall) Partial Fill upon patient request. 20 mg PO DAILY@1500 30 tabs 0RF escitalopram oxalate 10 mg PO DAILY 90 days 90 tabs 1RF bupropion HCl SR (Wellbutrin SR) 100 mg PO QAM 30 tabs 3RF Discontinued clonazepam administer 30 minutes before bedtime Discontinued Reason: Doctor's Order 0.5 mg PO BEDTIME PRN 3 tabs 0RF anxiety dextroamphetamine-amphetamine 25 mg ER (Adderall XR) Partial Fill upon patient request. Discontinued Reason: Doctor's Order 25 mg PO QAM 30 caps 0RF Counseling and coordination of Care Pt. Self Management counseling: Maintenance-social rhythm, Mod caffeine/ETOH intake, Sleep hygiene, Behavior activation, General coping skills and Problem solving Medication management counseling: Effectiveness, Side effects, Dosing range, Duration, Drug interaction and Adherence Diagnosis and Prognosis Counseling: Accuracy of diagnosis, Prognosis over time, Impact of diagnosis on life functions, Impact of family relationship, Problematic behaviors secondary to diagnosis and Adequacy of current interventions Details: I spent 35 minutes reviewing the record, seeing the patient and documenting in the medical record. Counseling provided to the patient/caregiver as outlined below. Addressed patient/caregiver concerns regarding current medication regime including effective adherence. Addressed patient/caregiver concerns regarding diagnosis and prognosis including accuracy of diagnosis, prognosis over time, impact of diagnosis. Addressed patient/caregiver concerns regarding impact of recent stressors. [facility] Medical History (Updated 12/09/24 @ 15:02 by Barby Griggs APRN) Uterine myoma Class 2 severe obesity with body mass index (BMI) of 35 to 39.9 with serious comorbidity Seborrhea capitis History of drug abuse Breast cancer Surgical History Hx of breast reconstruction History of lumpectomy of left breast H/O LEEP Family History Mother Substance use disorder Father No problems noted. 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
--- OUTSIDE RECORDS SUMMARY | 2025-02-03 14:39 | XMS_ITS | Clinical Summary ---
Author Organization [facility], Address [address] [place] [address] Phone Care Team Providers Care Early Intervention School Psychologist Name Role Phone Unavailable Primary Care Provider Unavailabl e Allergies No known active allergies Medications D3-50 1.25 MG (88868 UT) capsule Take 50,000 Units by mouth [...] 1996 Influenza Vaccine (Season Ended) [address] [place] [address] [employer]
== END 2025-02-03 14:04 | disposition home or self-care (01) ==
LOC: HO.HOP 13:34
PROVIDERS: PCP Internal Medicine; Visit Provider Clinical Nurse Specialist Psychiatric/Mental Health
DX: F90.2 Attention-deficit hyperactivity disorder, combined type (principal); F32.A Depression, unspecified
CPT/HCPCS: 99214

== ENCOUNTER 2025-02-26 14:21 | Outpatient (AMB) | payer OTHER, SELFPAY ==
--- NOTE | 2025-02-26 14:36 | A.OFFPC_ITS ---
Vital Signs 02/26/25 14:37 Height 5 ft 1 in Weight 200 lb BMI 37.8 BP 130/60 Blood Pressure Location Lt brachial Position Sitting Pulse 112 H Pulse Source Pulse Oximeter Temp 97.3 F Temp Source Temporal Artery Scan Pulse Oximetry (%) 96 Oxygen Delivery Method Room Air Intake Visit Reasons: ANNUAL - see comments Intake Note: Patient is here today for a physical. 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: Not Required per policy Accompanied by: Self / Same As Patient Allergies No Known Allergies [No Known Allergies*] Allergy (Verified 02/26/25 14:37) Tobacco use date assessed: 02/26/25 Dental Screening Dental Screen Date: 10/30/24 [facility] Medical History (Updated 12/09/24 @ 15:02 by Barby Griggs APRN) Uterine myoma Class 2 severe obesity with body mass index (BMI) of 35 to 39.9 with serious comorbidity Seborrhea capitis History of drug abuse Breast cancer Surgical History Hx of breast reconstruction History of lumpectomy of left breast H/O LEEP Family History Mother Substance use disorder Father No problems noted. Sister Breast cancer Rheumatoid arthritis Social History Housing: House Alcohol intake: never Patient Tobacco Use Status: Former Tobacco user Tobacco use type: Cigarette e-Cigarette/Vaping Use: Never Used Second Hand Smoke Exposure: Yes service: No Current occupational status: employed Gender identity: Female Cognitive needs: No Hearing needs: No Vision needs: Yes Female Reproductive History Menstrual Age of Menarche: 14 Questionnaire Thrive Questionnaire Date Thrive assessed: 10/30/24 I am a: Patient What is your living situation today?: I have a steady place to live Within the past 12 months, did the food you bought not last and you didn't have the money to get more?: Sometimes True Within the past 12 months, did you worry whether your food would run out before you got money to buy more?: Never true Do you have trouble paying for medicines?: No Do you have trouble getting transportation to medical appointments?: No Do you have trouble paying your heating and electricity bill?: No Do you have trouble taking care of your child, family member or friend?: No Do you have trouble with day-to-day activities such as bathing, preparing meals, shopping, managing finances, etc.?: No Are you currently unemployed and looking for a job?: No Are you interested in more education?: No Please select the resources that you would like help with: None Currently or been in a relationship where the following occur: No concerns reported THRIVE Score: 1 ALFONZO-7 AMB Questionnaire ALFONZO-7 Date ALFONZO - 7 assessed: 10/30/24 Source: Developed by Drs. Ghanshyam Fallon, Tonja Lind, Gregg Joseph and colleagues, with an educational allison from [employer]. Physical exam (Primary Care) Vital Signs: Last Vital Signs Temp 97.3 F 02/26/25 14:37 Pulse 112 H 02/26/25 14:37 BP 130/60 02/26/25 14:37 Pulse Ox 96 02/26/25 14:37 Oxygen Delivery Method Room Air 02/26/25 14:37 BMI result Body Mass Index 37.8 Tobacco/Smoking Status: Tobacco use Status Tobacco use date assessed 02/26/25 02/26/25 14:41 Patient Tobacco Use Status Former Tobacco user 02/26/25 14:41 Tobacco use type Cigarette 02/26/25 14:41 e-Cigarette/Vaping Use Never Used 02/26/25 14:41 Thrive Assessment: Date of Thrive Assessment Date Thrive assessed 10/30/24 02/26/25 14:41 Currently or been in a relationship where the following occur: No concerns reported Coding Level of Care Code Est Pt Level 4 (09005) Complex EM visit Add On G2211 Diagnoses Generalized anxiety disorder F41.1 Assessment & Plan Assessment & Plan (1) Generalized anxiety disorder: Code(s): F41.1 - Generalized anxiety disorder Category: Medical Plan: Sx well controlled on the welbutrin and lexapro Plan History of Present Illness - The patient is a 49-year-old female presenting for a wellness visit and medication review related to her mental health conditions, including Major Depressive Disorder, Generalized Anxiety Disorder, and Attention- Deficit/Hyperactivity Disorder. - Improvements in anxiety symptoms have been noted, with a reported 70% betterment utilizing Escitalopram. - Treatment for Attention-Deficit/Hyperactivity Disorder includes Bupropion and Amphetamine-Dextroamphetamine combination, improving work-related performance by 60-75%. - Noted past breast calcifications in a previous mammogram, with a current schedule for biannual mammographic screening. - Previous blood work was conducted earlier this year, with an implication of normal findings. - Cologuard is preferred for colorectal cancer screening, which I will coordinate. Social History - No specific social determinants of health were discussed during this visit. Review of Systems - Psychiatric: Reports significant improvement in anxiety symptoms with ongoing treatment. Attention-Deficit/Hyperactivity Disorder symptoms are under management. - Neurological: No specific neurological complaints. - Breast: Aware of prior calcifications and is compliant with regular monitoring. Physical Exam General: Cooperative and healthy appearing Nutritional Appearance: Well nourished Orientation/consciousness: Patient oriented x3 Limitations: No limitations Head: Normal to inspection General: Appearance normal, both eyes and all related structures Neck: Normal visual inspection Chest: Normal palpation of entire chest wall Respiratory: Normal, patient instructed to breathe normally during examination. ormal respiratory effort Neurology: Patient oriented x3 Results - Imaging: Breast calcifications previously identified; current mammographic follow-up scheduled. - Diagnostic: Upcoming Cologuard test planned. Plan 1. Major Depressive Disorder - Patient to continue taking Escitalopram, with continued monitoring. 2. Generalized Anxiety Disorder - Continued treatment with Escitalopram; symptom response favorable. 3. Attention-Deficit/Hyperactivity Disorder - Maintain Bupropion and Amphetamine-Dextroamphetamine regimen; assess improvements in functioning. 4. Breast Calcifications Routine Surveillance - Ensure scheduling and completion of biannual mammogram. Discussion Notes During this visit, I discussed the current management plan for Major Depressive Disorder, Generalized Anxiety Disorder, and Attention-Deficit/Hyperactivity Disorder, all of which are showing favorable responses with current medication regimens. The patient confirmed regular mammographic surveillance for breast calcifications, with the next mammogram due in April. Colorectal cancer screening will be addressed with a Cologuard test, as preferred and agreed by the patient. Follow-up on these chronic conditions and any further necessary medications or adjustments are arranged to monitor symptom efficacy and side effects. The patient should continue prescribed medication, adhere to safety guidelines, and contact the office for any concerns or acute developments. Patient Instructions - Continue taking your prescribed medications: Lexapro, Wellbutrin, and Adderall. - Proceed with your mammogram scheduled for April. - Expect to receive a Cologuard test for at-home colorectal cancer screening. - Contact the office with any changes in symptoms or if any new concerns arise. Medications: Refilled cyclobenzaprine 10 mg PO BEDTIME 30 tabs 0RF
[2025-02-26 14:37] VITALS: BP 130/60; PULSE 112; TEMP 36.3; O2SAT 96; BMI 37.8
--- OUTSIDE RECORDS SUMMARY | 2025-02-26 16:59 | XMS_ITS | Clinical Summary ---
Author Organization [facility], Address [address] [place] [address] Phone Care Team Providers Care Surgical Dental Assistant Name Role Phone Unavailable Primary Care Provider Unavailabl e Allergies No known active allergies Medications D3-50 1.25 MG (45661 UT) capsule Take 50,000 Units by mouth [...] 1996 Influenza Vaccine (Season Ended) [address] [place] [address] [employer]
== END 2025-02-26 15:07 | disposition home or self-care (01) ==
LOC: HO.HMCH 14:22
PROVIDERS: PCP Internal Medicine; Visit Provider Internal Medicine
DX: F41.1 Generalized anxiety disorder (principal)

== ENCOUNTER → 2025-02-26 14:21 | Outpatient (BNVA) | payer OTHER, SELFPAY | PROVIDERS: PCP Internal Medicine; Visit Provider Internal Medicine ==

== ENCOUNTER 2025-03-31 13:38 | Outpatient (AMB) | payer OTHER, SELFPAY ==
--- NOTE | 2025-03-31 13:47 | A.OFFPSYCH_ITS ---
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: No Allergies No Known Allergies (No Known Allergies*) Allergy (Verified 02/26/25 14:37) Medication List - Last Reconciled 03/31/25 by Barby Griggs APRN acetaminophen 650 mg PO Q6H bisacodyl (Dulcolax (bisacodyl)) 10 mg (2 x 5 mg) PO BEDTIME bupropion HCl SR (Wellbutrin SR) 100 mg PO QAM cholecalciferol (vitamin D3) 50 mcg PO DAILY cyclobenzaprine 10 mg PO BEDTIME dextroamphetamine-amphetamine 20 mg (Adderall) 20 mg PO DAILY@1500 dextroamphetamine-amphetamine 30 mg ER (Adderall XR) 30 mg PO QAM escitalopram oxalate 10 mg PO DAILY 90 days ibuprofen 800 mg PO Q8H PRN polyethylene glycol 3350 (Miralax) 238 grams PO ONCE HPI- Psychiatric Chief Complaint: f/u consultation HPI Narrative: Pt seen for follow up for ADHD, MDD and ALFONZO. pt reports much improvement; she reports improved mood, less overwhelmed, less depressed, less anxious. She is sleeping well. One night she did take 1/2 tab of clonazepam for anxiety and sleep with good effect. she is more organized and more focused. She is functioning much better. she is not struggling with keeping routines and has increased self care. She denies any SI or HI; she denies any illicit drug use. No cravings to use. No medical changes. Past Psychiatric History: therapist Ghanshyam Cox; on sublicaid injection -has been tapering over the last year Mental Status Exam Mental Status Exam Patient Appearance: Well Grooomed Patient Orientation: Person, Place, Time and Situation Level of Consciousness: Awake and Appropriate Patient Behavior: Appropriate Mood Description: Happy and Cheerful Affect Description: Happy and Cheerful Patient Cognition Impaired: No Ability to Follow Directions: Good Speech Pattern: Clear and Coherent Memory Description: Intact Hallucinations: None Delusions: Not Present Thought Process: Intact and Goal Oriented Thought Content: positive for Intact and positive for Goal Oriented Judgement: Good Assessment and Plan Assessment & Plan (1) ADHD (attention deficit hyperactivity disorder), combined type: Status: Acute Code(s): F90.2 - Attention-deficit hyperactivity disorder, combined type (2) Depression, unspecified: Status: Acute Qualifiers: Depression Type: major depressive disorder Major depression recurrence: recurrent Active/Remission status: in partial remission Qualified Code(s): F33.41 - Major depressive disorder, recurrent, in partial remission Code(s): F32.A - Depression, unspecified Plan The MDD is in early remission. The anxiety is much better; The ADHD treatment has reduced all her symptoms. She has responded very well to Adderall XR 30mg in am and Adderall IR 20mg in the afternoon if she has work to do(paperwork etc). She is also taking wellbutrin SR 100mg and lexapro 10mg daily with very good results. She has a rx for clonazepam which she has only used a half tab once when she couldn't settle down for sleep. She does not need a refill for that. I am sending her back to you for follow up. I can cover her refills untill you can see her. Her PHQ9 and GAD7 have improved from 9 to 2 and 14 to 2 respectively. she is functioning much better. I have advised her to be careful in hot summer weather as the adderall can increase risk of sun burn and cause the body's temp regulation to be inefficient- so ice water, shade, air conditioning, sunscreen use more. continue medications per below ok to use clonazepam prn for anxiety or sleep continue adderall XR to 30mg in am and take adderall 20mg at 3pm continue lexapro 10 mg daily and wellbutrin sr 100mg daily Medications: Refilled escitalopram oxalate 10 mg PO DAILY 90 tabs 1RF 90 days bupropion HCl SR (Wellbutrin SR) 100 mg PO QAM 30 tabs 3RF dextroamphetamine-amphetamine 20 mg (Adderall) Partial Fill upon patient request. 20 mg PO DAILY@1500 30 tabs 0RF F90.2 - Attention-deficit hyperactivity disorder, combined type dextroamphetamine-amphetamine 30 mg ER (Adderall XR) Partial Fill upon patient request. 30 mg PO QAM 30 caps 0RF Counseling and coordination of Care Pt. Self Management counseling: Maintenance-social rhythm, Mod caffeine/ETOH intake, Sleep hygiene, Behavior activation, General coping skills and Problem solving Medication management counseling: Effectiveness, Side effects, Dosing range, Duration, Drug interaction and Adherence Diagnosis and Prognosis Counseling: Accuracy of diagnosis, Prognosis over time, Impact of diagnosis on life functions, Impact of family relationship, Problematic behaviors secondary to diagnosis and Adequacy of current interventions Details: I spent 45 minutes reviewing the record, seeing the patient and documenting in the medical record. Counseling provided to the patient/caregiver as outlined below. Addressed patient/caregiver concerns regarding current medication regime including effective adherence. Addressed patient/caregiver concerns regarding diagnosis and prognosis including accuracy of diagnosis, prognosis over time, impact of diagnosis. Addressed patient/caregiver concerns regarding impact of recent stressors. [facility] Medical History (Updated 03/31/25 @ 13:51 by Barby Griggs APRN) Uterine myoma Class 2 severe obesity with body mass index (BMI) of 35 to 39.9 with serious comorbidity Seborrhea capitis History of drug abuse Breast cancer Surgical History Hx of breast reconstruction History of lumpectomy of left breast H/O LEEP Family History Mother Substance use disorder Father No problems noted. 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; grew up in area lived with mother, father and younger sister Substance History: etoh and opiates as a teen until then stopped - on sublicaid injection at [facility] [place] Trauma History: yes parents both etohics; parents 2 weeks apart when pt age 23 Coding Level of Care Code Est Pt Level 5 (44667) Diagnoses ADHD (attention deficit hyperactivity disorder), combined type F90.2 Recurrent major depressive disorder, in partial remission F33.41 Depression Type: major depressive disorder Major depression recurrence: recurrent Active/Remission status: in partial remission
--- OUTSIDE RECORDS SUMMARY | 2025-03-31 14:23 | XMS_ITS | Clinical Summary ---
Author Organization [facility], Address [address] [place] [address] Phone Care Team Providers Care Market News Reporter Name Role Phone Unavailable Primary Care Provider Unavailabl e Allergies No known active allergies Medications D3-50 1.25 MG (93775 UT) capsule Take 50,000 Units by mouth [...] 82 11/21/2019 12:38 PM EST Temperature 36.8 C (98.2 F) 11/21/2019 12:38 PM EST Respiratory Rate 12 11/21/2019 12:38 PM EST [...] of 2 - PCV) 1996 Influenza Vaccine (#1) [address] [place] [address] [employer]
== END 2025-03-31 13:56 | disposition home or self-care (01) ==
LOC: HO.HOP 13:38
PROVIDERS: PCP Internal Medicine; Visit Provider Clinical Nurse Specialist Psychiatric/Mental Health
DX: F90.2 Attention-deficit hyperactivity disorder, combined type (principal); F33.41 Major depressive disorder, recurrent, in partial remission
CPT/HCPCS: 99215

== ENCOUNTER 2025-08-31 07:38 | Outpatient (AMB) | payer OTHER, SELFPAY ==
--- NOTE | 2025-08-31 07:35 | MHC.OFFVIS ---
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 No complaints. Last Pap/HPV was negative in 06/16 Last Mammogram was done at [facility] in 04/15 was BI-RADS 3, the recommendation was to repeat in six-months according to the patient no records available [facility] Medical History Uterine myoma Class 2 severe obesity with body mass index (BMI) of 35 to 39.9 with serious comorbidity Seborrhea capitis History of drug abuse Breast cancer Surgical History Hx of breast reconstruction History of lumpectomy of left breast H/O LEEP Family History Mother Substance use disorder Father No problems noted. 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 Sexual orientation: Straight/Heterosexual Gender identity: Female Cognitive needs: No Hearing needs: No Vision needs: Yes Female Reproductive History Menstrual Age of Menarche: 14 Date of last menstrual period: 05/06/25 Date of last pap smear: 06/22/23 Date of Mammogram: 08/28/24 Review of Systems Const All systems reviewed & are unremarkable except as noted in HPI and below Card Reports as per HPI Resp Reports as per HPI GI Reports as per HPI and Reports no additional complaints Reports as per HPI Physical Exam Vital Signs: Last Vital Signs BP 138/96 H 08/31/25 07:39 BMI result Body Mass Index 37.4 Const General: cooperative, healthy appearing and comfortable Chest Chest palpation & inspection: normal inspection of the chest and normal palpation of entire chest wall Breast/axilla inspection: normal inspection of the breasts and normal inspection of the axillae Breast/axilla palpation: normal palpation of the breasts, normal palpation of the axillae and no axillary lymphadenopathy Resp Effort & Inspection: normal respiratory effort Auscultation: clear to auscultation bilaterally Percussion: percussion normal Cardio Palpation: normal PMI Rate: regular rate Rhythm: regular rhythm Heart sounds: no murmurs and no rubs Peripheral pulses: Peripheral pulses 2+ throughout GI Inspection: Yes normal to inspection Palpation (GI): Soft to palpation, nontender, no guarding, not rigid and No hepatosplenomegaly present Percussion: Yes normal to percussion Auscultation: normal bowel sounds Rectal Exam - Female: deferred General: Yes bladder normal to palpation External Female Exam: No lesion Speculum Exam - Vagina: normal appearance of the vagina, normal palpation, normal vaginal discharge and not erythematous Speculum Exam - Cervix: normal appearance of the cervix and normal palpation Bimanual exam- vagina & uterus: normal bimanual exam, normal palpation, uterine size normal, bladder normal to palpation, consistency normal and normal palpation Bimanual Exam- Adnexa, other: normal adnexae, no masses and no tenderness Assessment & Plan Assessment & Plan (1) Well woman exam: Comment: History of a LEEP in 2003 Code(s): Z01.419 - Encounter for gynecological examination (general) (routine) without abnormal findings Category: Medical Plan: Cotesting not indicated this year. Instructions given to patient to schedule next screening Mammogram in 10/19. Counseled the patient about the recommended dietary allowance of 1000 mg of Calcium & 600 IU of vitamin D. The patient was instructed to perform monthly self-breast exams and to schedule an annual exam in a year; All questions answered and the patient verbalized understanding. Instructed the patient to schedule annual exam in a year (2) Uterine myoma: Code(s): D25.9 - Leiomyoma of uterus, unspecified Category: Medical Plan: Pelvic ultrasound ordered, instructions given the patient is schedule a follow-up appointment within 2-3 weeks. All questions answered with the patient verbalized understanding Orders: Orders US pelvic and transvaginal Today D25.9 - Leiomyoma of uterus, unspecified Coding Level of Care Code Est Pt Level 3 (06315) Est Pt Prev Care 40-64y(71133) Diagnoses Well woman exam Z01.419 Uterine myoma D25.9
[2025-08-31 07:39] VITALS: BP 138/96; BMI 37.4
--- OUTSIDE RECORDS SUMMARY | 2025-08-31 07:41 | XMS_ITS | Clinical Summary ---
Author Organization [facility], Address [address] [place] [address] Phone Care Team Providers Care Sales Engineer Account Manager Name Role Phone Unavailable Primary Care Provider Unavailabl e Allergies No known active allergies Medications D3-50 1.25 MG (59705 UT) capsule Take 50,000 Units by mouth every 7 (seven) days 10/27/2019 Active Active Problems Problem Noted Date Diagnosed Date Malignant neoplasm of overla pping sites of left female breast 11/20/2019 Headache 11/20/2019 Social History Tobacco Use Types Packs/Day Years Used Date Smoking Tobacco: Former Cigarettes 0 Q uit: 09/2019 Smokeless Tobacco: Never Alcohol [...] PCV) 1996 Influenza Vaccine (#1) [address] [place] [address] [place] [address]
== END 2025-08-31 10:00 | disposition home or self-care (01) ==
LOC: HO.HWS 07:38
PROVIDERS: PCP Internal Medicine; Visit Provider Obstetrics & Gynecology
DX: Z01.419 Encounter for gynecological examination (general) (routine) without abnormal findings (principal); D25.9 Leiomyoma of uterus, unspecified
CPT/HCPCS: 99213; 99396; 99459

== ENCOUNTER 2025-09-10 15:01 | Outpatient (AMB) | payer OTHER, SELFPAY ==
--- NOTE | 2025-09-10 15:14 | MHC.PC.OV ---
Vital Signs 09/10/25 15:15 Height 5 ft 1 in Weight 202 lb 6 oz BMI 38.2 BP 130/80 Blood Pressure Location Lt brachial Position Sitting Pulse 84 Pulse Source Pulse Oximeter Temp 97.4 F Temp Source Temporal Artery Scan Pulse Oximetry (%) 100 Oxygen Delivery Method Room Air Intake Visit Reasons: 6 month f/u Intake Note: Patient is here to follow up on ADHD, HLD, Hypercholesterolemia. Group Leader Semiconductor Processing Required: No Asphalt Blender: Not Required per policy Accompanied by: Self / Same As Patient Allergies No Known Allergies (No Known Allergies*) Allergy (Verified 09/10/25 15:15) Tobacco use date assessed: 09/10/25 Dental Screening Dental Screen Date: 10/30/24 [facility] Medical History Uterine myoma Class 2 severe obesity with body mass index (BMI) of 35 to 39.9 with serious comorbidity Seborrhea capitis History of drug abuse Breast cancer Surgical History Hx of breast reconstruction History of lumpectomy of left breast H/O LEEP Family History Mother Substance use disorder Father No problems noted. 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 Sexual orientation: Straight/Heterosexual Gender identity: Female Cognitive needs: No Hearing needs: No Vision needs: Yes Female Reproductive History Menstrual Age of Menarche: 14 Questionnaire Thrive Questionnaire Date Thrive assessed: 10/30/24 What is your living situation today?: I have a steady place to live Within the past 12 months, did the food you bought not last and you didn't have the money to get more?: Sometimes True Within the past 12 months, did you worry whether your food would run out before you got money to buy more?: Never true Do you have trouble paying for medicines?: No Do you have trouble getting transportation to medical appointments?: No Do you have trouble paying your heating and electricity bill?: No Do you have trouble taking care of your child, family member or friend?: No Do you have trouble with day-to-day activities such as bathing, preparing meals, shopping, managing finances, etc.?: No Are you currently unemployed and looking for a job?: No Are you interested in more education?: No Currently or been in a relationship where the following occur: No concerns reported THRIVE Score: 1 ALFONZO-7 AMB Questionnaire ALFONZO-7 Date ALFONZO - 7 assessed: 10/30/24 Source: Developed by Drs. Ghanshyam Fallon, Tonja Lind, Gregg Joseph and colleagues, with an educational allison from [employer]. Physical exam (Primary Care) Vital Signs: Last Vital Signs Temp 97.4 F 09/10/25 15:15 Pulse 84 09/10/25 15:15 BP 130/80 09/10/25 15:15 Pulse Ox 100 09/10/25 15:15 Oxygen Delivery Method Room Air 09/10/25 15:15 BMI result Body Mass Index 38.2 Tobacco/Smoking Status: Tobacco use Status Tobacco use date assessed 09/10/25 09/10/25 15:21 Patient Tobacco Use Status Former Tobacco user 09/10/25 15:21 Tobacco use type Cigarette 09/10/25 15:21 e-Cigarette/Vaping Use Never Used 09/10/25 15:21 Thrive Assessment: Date of Thrive Assessment Date Thrive assessed 10/30/24 09/10/25 15:21 Currently or been in a relationship where the following occur: No concerns reported Coding Level of Care Code Est Pt Level 4 (48801) Add On Problem Visit Only Diagnoses Familial hypercholesterolemia E78.01 Assessment & Plan Assessment & Plan (1) Familial hypercholesterolemia: Code(s): E78.01 - Familial hypercholesterolemia Category: Medical Plan: History of Present Illness - The patient is a 49 year old female presenting for follow-up for management of her mental health and medication refills. - She has a history of major depression and attention-deficit disorder and reports her mood has improved significantly with a combination of citalopram and bupropion, which was initiated after her last visit in February. - She currently takes citalopram 10 mg daily, bupropion, Adderall 30 mg once daily, and an additional Adderall 20 mg immediate release to provide coverage through the day, a regimen which she finds effective. - The patient denies taking clonazepam, which was prescribed for potential insomnia but was not needed. - She also does not take cyclobenzaprine, which was prescribed in the past for back pain. - She reports a history of chronic hip pain. - Regarding preventative care, the patient recently completed a Cologuard test, which was negative. - Her cholesterol was noted to be high in the 160s in November. - She declines the flu shot. 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 Review of Systems - General: Denies generalized pain. - Musculoskeletal: Reports persistent hip pain. - Psychiatric: Reports mood is good and has improved with medication. - Neurological: Denies trouble sleeping. Physical Exam General: Appearance normal, both eyes and all related structures Nutritional Appearance: Well nourished Orientation/consciousness: Patient oriented x3 Limitations: No limitations Head: Normal to inspection Neck: Normal visual inspection Chest: Normal palpation of entire chest wall Respiratory: Normal respiratory effort, no pains anywhere Neurology: Patient oriented x3 Results - Labs: Cholesterol was high in November, in the 160s. - Tests: Recent Cologuard test was negative. Plan - Major Depressive Disorder/ADHD: Continue current regimen of citalopram 10 mg, bupropion, Adderall 30 mg, and Adderall 20 mg. A prescription for both Adderall medications will be sent to the pharmacy. - Hyperlipidemia: Order blood work to recheck cholesterol levels. - Health Maintenance: The patient declined the influenza vaccination. No further action at this time. - Chronic Hip Pain: Acknowledged the patient's report of persistent hip pain. No new interventions planned at this visit. Discussion Notes I reviewed the patient's mental health status, and she reports her mood is significantly better with the combination of citalopram and bupropion, along with her Adderall regimen for ADD. I will send prescriptions for her two Adderall medications as requested. We discussed her recent negative Cologuard result. Given that her cholesterol was elevated in November, I ordered repeat blood work to monitor this. The patient declined the influenza vaccine today. Patient Instructions - Continue taking your current medications as prescribed, including citalopram, bupropion, and both Adderall prescriptions. - I have sent refills for your two Adderall medications to your pharmacy. - Please complete the blood work that was ordered to recheck your cholesterol levels. - Your recent Cologuard test for colon cancer screening was negative, which is good news. Orders: Orders Thyroid Stimulating Hormone Today E78.01 - Familial hypercholesterolemia Basic Metabolic Panel Today E78.01 - Familial hypercholesterolemia Complete Blood Count no Diff Today E78.01 - Familial hypercholesterolemia Lipid Panel Today E78.01 - Familial hypercholesterolemia Liver Panel Today E78.01 - Familial hypercholesterolemia UA and rflx microscopic Today E78.01 - Familial hypercholesterolemia Medications: Refilled dextroamphetamine-amphetamine 20 mg (Adderall) Partial Fill upon patient request. 20 mg PO DAILY@1500 30 tabs 0RF F90.2 - Attention-deficit hyperactivity disorder, combined type dextroamphetamine-amphetamine 30 mg ER (Adderall XR) please allow early citrus picker on 06/03/25 for vacation 30 mg PO QAM 30 caps 0RF
[2025-09-10 15:15] VITALS: BP 130/80; PULSE 84; TEMP 36.3; O2SAT 100; BMI 38.2
--- OUTSIDE RECORDS SUMMARY | 2025-09-10 19:08 | XMS_ITS | Clinical Summary ---
Author Organization [facility], Address [address] [place] [address] Phone Care Team Providers Care Custom Grinder Name Role Phone Unavailable Primary Care Provider Unavailabl e Allergies No known active allergies Medications D3-50 1.25 MG (09434 UT) capsule Take 50,000 Units by mouth [...] PCV) 1996 Influenza Vaccine (#1) [address] [place] [address] [employer]
== END 2025-09-10 15:47 | disposition home or self-care (01) ==
LOC: HO.HMCH 15:02
PROVIDERS: PCP Internal Medicine; Visit Provider Internal Medicine
DX: E78.019 Familial hypercholesterolemia, unspecified (principal)